=== PATIENT | male | born 1960 | race Caucasian/White ===

== ENCOUNTER 2019-12-11 14:01 | Inpatient (IN) | payer OTHER, SELFPAY ==
--- NOTE | ~2019-12-11 | CT_ITS ---
EXAMINATION: CT abdomen pelvis wo con EXAM DATE: 12/11/2019 16:45 INDICATION: Diarrhea. TECHNIQUE: Spiral CT of the abdomen and pelvis was performed without contrast. Axial, coronal and s agittal images were reviewed. The dose-length product (DLP) for this examination was 484.11 mGy-cm. The exposure was tailored according to patient size (auto mA exposure control), and iterative recons truction (ASIR) was used as additional dose reduction technique. There is no prior study for compari son. FINDINGS: The liver, spleen, adrenal glands and pancreas are unremarkable. Gallbladder is moderately distended but otherwise unremarkable. No calcified cholelithiasis. There is no nephrolithiasis or h ydronephrosis. The prostate is unremarkable. Some diffuse bladder wall thickening, could indicate chronic cystitis. Acute cystitis not excludable. There is no retroperitoneal or pelvic lymphadenopat hy. There is mild scattered arteriosclerotic disease. The appendix is normal. The stomach and small bowel are unremarkable. Moderate amount of colonic fl uid, mild to moderate diffuse colonic wall edema suspected with prominent supplying vasculature, hype remia. Appearance is consistent with colitis most likely infectious. There is mild to moderate sigmoi d colonic diverticulosis. There is no adjacent inflammatory change to suggest diverticulitis. No fr ee intraperitoneal gas. The heart is normal in size. There are no pericardial or pleural effusions . The lung bases are unremarkable. There are no osteoblastic or osteolytic lesions identified. [employer] hailey bilateral L5 spondylolysis with moderate to severe disc disease and grade 1 anterolisthesis at th is level. IMPRESSION: 1. Findings consistent with jaime colitis, diarrhea. 2. Mild to moderate sigmoid diverticulosis. 3. Mild diffuse bladder wall thickening, may be changes of chronic cystitis but check urinalysis. Reviewed, dictated and finalized at location A. IMPRESSION: 1. Findings consistent with jaime colitis, diarrhea. 2. Mild to moderate sigmoid diverticulosis. 3. Mild diffuse bladder wall thickening, may be changes of chronic cystitis bu t check urinalysis.
[2019-12-11 14:11] VITALS: BP 105/75; PULSE 91; RESP 15; TEMP 36; O2SAT 99
--- NOTE | 2019-12-11 14:26 | PC.NURSE ---
aware need UA specimen
[2019-12-11 14:27] VITALS: BP 101/68; BP 105/71; BP 99/72; PULSE 106; PULSE 91; PULSE 99
--- NOTE | 2019-12-11 14:30 | PC.NURSE ---
Pt unable to urinate at this time
--- NOTE | 2019-12-11 15:00 | ED.GENADULT ---
HPI - General Adult General Chief complaint: Abdominal Pain Stated complaint: ABD PAIN Time Seen by Provider: 12/11/19 14:06 History of Present Illness HPI narrative: Patient is a 59 y/o male complaining diarrhea for 3 weeks. He states that his diarrhea is watery and slimy. He had 20-30 episodes of diarrhea in last 24 hours. There is no alleviating or exacerbating factor. He denies any fever, abdominal pain or vomiting. He states that he was told by PCP that he may have diverticulitis or dehydration and to come to ED for evaluation. Of note, he received antibiotics (Levaquin and Flagyl) several weeks ago from PCP for presumed colitis/diveriticulitis. Related Data Home Medications Medication Instructions Recorded Confirmed amlodipine 5 mg PO 12/11/19 losartan 50 mg PO 12/11/19 omeprazole 20 mg PO 12/11/19 rosuvastatin 20 mg PO 12/11/19 Allergies Allergy/AdvReac Type Severity Reaction Status Date / Time aspirin Allergy Hives Verified 12/11/19 14:16 levofloxacin [From Levaquin] Allergy Hives Verified 12/11/19 14:16 metronidazole [From Flagyl] Allergy Hives Verified 12/11/19 14:15 Review of Systems Constitutional: Constitutional: Denies chills, Denies fever(s), Denies headache(s) and Denies weakness Eyes: Eyes: Denies blurry vision ENT: Denies headache(s) and Denies neck pain Cardiovascular: Cardiovascular: Denies chest pain and Denies dyspnea Respiratory: Respiratory: Denies cough and Denies dyspnea Gastrointestinal: Gastrointestinal: Denies abdominal pain, Reports diarrhea, Denies nausea and Denies vomiting Genitourinary: Genitourinary: Denies hematuria and Denies dysuria Musculoskeletal: Musculoskeletal: Denies back pain and Denies neck pain Neurologic: Denies headache(s) and Denies weakness [facility] Social History Social History Gender identity (if verbalized by the patient): Male Exam Const: General: no acute distress and well developed Orientation/consciousness: oriented to person, oriented to place, oriented to time and patient oriented x3 HENMT: Head: normocephalic Ears: external ears normal General nose exam: Normal external nose present Eyes: General: appearance normal, both eyes and all related structures Conjunctivae: conjunctivae normal Neck: Neck: normal visual inspection and full ROM Chest: Chest palpation & inspection: normal inspection of the chest and no tenderness Resp: Effort & Inspection: normal respiratory effort Auscultation: clear to auscultation bilaterally Cardio: Rate: regular rate Rhythm: regular rhythm GI: GI Palp: No abdominal tenderness and Yes Soft to palpation Skin: General skin exam: normal color and turgor normal Neuro: General: oriented to person, oriented to place, oriented to time and patient oriented x3 Cognition (Neuro): normal cognition Extrem: General: normal to inspection, full ROM and no pedal edema Psych: Appearance: grossly normal Mental Status: mental status grossly normal Affect: normal affect Course Consultations Consultation #1: Discussed with YAIMA Manriquez, who agrees to admit to Dr. Pollard Date: 12/11/19 Time: 17:49 Vital Signs Vital signs: Vital Signs Temperature 36.0 C L 12/11/19 14:11 Pulse Rate 91 12/11/19 14:11 Respiratory Rate 15 12/11/19 14:11 Blood Pressure 105/75 12/11/19 14:11 Pulse Oximetry 99 12/11/19 14:11 Temperature 36.0 C L 12/11/19 14:11 Pulse Rate 77 12/11/19 19:03 Respiratory Rate 18 12/11/19 19:03 Blood Pressure 106/63 12/11/19 19:03 Pulse Oximetry 99 12/11/19 19:03 Medical Decision Making Vital Signs Vital Signs: Vital Signs Temperature 36.0 C L 12/11/19 14:11 Pulse Rate 91 12/11/19 14:11 Respiratory Rate 15 12/11/19 14:11 Blood Pressure 105/75 12/11/19 14:11 Pulse Oximetry 99 12/11/19 14:11 Temperature 36.0 C L 12/11/19 14:11 Pulse Rate 77 12/11/19 19:03 Respiratory Rate 18 12/10
--- NOTE | 2019-12-11 15:02 | PC.NURSE ---
Pt attempting to urinate at this time. unsuccessfull
[2019-12-11] MEDS: SODIUM CHLORIDE 0.9% IV 1,000 ML 999 ML IV CONT (15:06)
[2019-12-11 15:18] LABS: Basophils Absolute Auto 0.1 K/mm3 (0.0-0.1); Basophils Percent Auto 0.3 % (0.2-1.2); Hematocrit 43.2 % (42.0-52.0); Hemoglobin 15.1 g/dL (14.0-18.0); Immature Granulocyte Absolute 0.11 K/mm3 (0.00-0.031); Immature Granulocyte Percent A 0.5 % (0-0.5); Lymphocytes Absolute Auto 1.84 K/mm3 (0.9-3.2); Mean Corpuscular Hemoglobin 33.3 pg (26-34); Mean Corpuscular Volume 95.4 fl (80-100); Mean Platelet Volume 10.5 fl (7.4-10.4); Monocytes Absolute Auto 1.9 K/mm3 (0.1-0.6); Monocytes Percent Auto 8.4 % (2.6-8.5); Neutrophils Absolute Auto 19.1 K/mm3 (1.3-6.7); Neutrophils Percent Auto 82.8 % (45.5-73.1); Platelet Count Result 284 k/mm3 (150-375); Red Blood Count 4.53 M/mm3 (4.6-6.20); Red Cell Distribution Width 14.4 % (11.5-14.5); White Blood Count 23.1 K/mm3 (4.5-10.0)
[2019-12-11 15:29] LABS: Alanine Aminotransferase 25 U/L (4-50); Albumin Level 4.2 g/dL (3.5-5.1); Alkaline Phosphatase 59 U/L (38-126); Aspartate Amino Transferase 20 U/L (17-59); Bilirubin,Total 0.5 mg/dL (0.2-1.3); Blood Urea Nitrogen 18 mg/dL (9-20); Carbon Dioxide 24 mmol/L (22-30); Chloride 101 mmol/L (98-107); Estimated Glomerular Filt Rate 36; Glucose 106 mg/dL (75-110); Lipase 80 U/L (23-300); Potassium 3.1 mmol/L (3.4-5.0); Sodium 136 mmol/L (137-145)
--- NOTE | 2019-12-11 15:46 | PC.NURSE ---
Leni from CT notified me that pts IV infiltrated
[2019-12-11 15:59] LABS: Add Urine Microscopic? YES; Appearance Urine Cloudy (Clear); Bacteria Urine Trace /hpf; Bilirubin Urine Negative (Negative); Blood Urine 2+ (Negative); Color Urine Amber (Yellow); Glucose Urine UA Negative (Negative); Ketones Urine Negative (Negative); Leukocyte Esterase Ur Negative LEU/UL (Negative); Mucus Urine Rare /lpf; Nitrate Urine Negative (Negative); Protein Urine 2+ mg/dL (Negative); Specific Grav Ur 1.028 (1.001-1.035); Squamous Epithelial Cell Urine Rare /hpf (Few); Urobilinogen Urine Negative mg/dL (<2.0)
[2019-12-11 16:37] VITALS: BP 99/58; PULSE 77; RESP 18; O2SAT 100
[2019-12-11] MEDS: POTASSIUM CHLORIDE 20 MEQ TABLET 40 MEQ PO (16:37)
[2019-12-11 19:03] VITALS: BP 106/63; PULSE 77; RESP 18; O2SAT 99
[2019-12-11 19:30] VITALS: BP 104/64; PULSE 80; RESP 16; TEMP 36.4; O2SAT 99; BMI 26.5
[2019-12-11] MEDS: SODIUM CHLORIDE 0.9% IV 1,000 ML 125 ML IV CONT (19:42)
[2019-12-11 19:48] VITALS: BMI 26.5
--- NOTE | 2019-12-11 19:51 | ADMGEN ---
This patient, Glenn Blake, was admitted to [facility] Surg Room 315-01. Patient/family oriented to hospital policies and general routines including ID bracelet, bed and alarms, visiting hours, pain management, procedures, bathroom and other care routines, personal items, smoking policy, room service/diet, and visiting hours. Valuables list has been completed. Information on how to activate the Rapid Response Team has been discussed. Patient/Family are encouraged to report perceived risks to care and to ask questions if they do not understand what they are told or what they should do.
[2019-12-11 22:00] VITALS: BP 100/58; PULSE 58; RESP 16; TEMP 36.7; O2SAT 98
[2019-12-12] MEDS: SODIUM CHLORIDE 0.9% IV 1,000 ML 125 ML IV CONT ×3 (04:13→21:30)
[2019-12-12 06:00] VITALS: BP 115/66; PULSE 68; RESP 16; TEMP 36.6; O2SAT 95
[2019-12-12 06:26] LABS: Basophils Percent Auto 0.2 % (0.2-1.2); Eosinophils Absolute Auto 0.2 K/mm3 (0-0.3); Eosinophils Percent Auto 1.3 % (0-4.4); Hematocrit 35.1 % (42.0-52.0); Hemoglobin 12.2 g/dL (14.0-18.0); Immature Granulocyte Absolute 0.06 K/mm3 (0.00-0.031); Immature Granulocyte Percent A 0.5 % (0-0.5); Lymphocytes Percent Auto 20.5 % (18.3-44.2); Mean Corpuscular HGB Conc 34.8 g/dl (32-36); Mean Corpuscular Hemoglobin 33.2 pg (26-34); Mean Corpuscular Volume 95.4 fl (80-100); Mean Platelet Volume 10.4 fl (7.4-10.4); Monocytes Absolute Auto 1.3 K/mm3 (0.1-0.6); Monocytes Percent Auto 10.2 % (2.6-8.5); Neutrophils Absolute Auto 8.5 K/mm3 (1.3-6.7); Neutrophils Percent Auto 67.3 % (45.5-73.1); Platelet Count Result 243 k/mm3 (150-375); Red Blood Count 3.68 M/mm3 (4.6-6.20); Red Cell Distribution Width 14.5 % (11.5-14.5); White Blood Count 12.7 K/mm3 (4.5-10.0)
[2019-12-12 06:37] LABS: Blood Urea Nitrogen 14 mg/dL (9-20); Calcium 8.1 mg/dL (8.4-10.2); Carbon Dioxide 23 mmol/L (22-30); Chloride 107 mmol/L (98-107); Estimated CRCL calculation 71 ml/min; Estimated Glomerular Filt Rate > 60; Glucose 85 mg/dL (75-110); Potassium 3.2 mmol/L (3.4-5.0); Sodium 134 mmol/L (137-145)
[2019-12-12 08:00] VITALS: PULSE 68; RESP 16; O2SAT 95
[2019-12-12] MEDS: POTASSIUM CHLORIDE 20 MEQ TABLET 40 MEQ PO (09:42)
[2019-12-12 14:00] VITALS: BP 117/68; PULSE 59; RESP 18; TEMP 36.6; O2SAT 99
--- NOTE | 2019-12-12 14:39 | PM.IMHP ---
H&P: HPI History of Present Illness Chief complaint: dehydration/diarrhea Narrative: Glenn Blake is a 59 year old male presented emergency department with a complaint of diarrhea on and off last 3 weeks however on 12/10 his symptoms got worsen, he had bouts 20 to 30 episodes watery slimy BMs, patient was recently treated for presumed diverticulitis with Flagyl and Levaquin by his PCP, patient had a CT scan of abdomen which showed patient has a jaime colitis patient started on p.o. vancomycin from emergency depart for possible C diff which is pending, we have started the patient on Zosyn to cover for colitis, patient states is feeling little better compared to when he arrived, bowel movements have improved denies any nausea or vomiting patient is on clear liquid diet, he denies any fever or chills he denies any rectal bleeding. Review of Systems Review of Systems: All systems reviewed & are unremarkable except as noted in HPI and below PMFSH Social History Social History Smoking packs per day: 1 Smoking cigarettes per day: 20.0 Years smoked: 40 Smoking pack-years: 40.00 Smoking status: Current every day smoker Tobacco type: cigarettes Alcohol intake: current Drinks per week: 8 Substance use: never Gender identity (if verbalized by the patient): Male Spiritual care concerns: No Meds Home Medications and Allergies Home Medications Medication Instructions Recorded Confirmed Type amlodipine 5 mg PO DAILY 12/11/19 12/11/19 History losartan 50 mg PO DAILY 12/11/19 12/11/19 History omeprazole 20 mg PO HS 12/11/19 12/11/19 History rosuvastatin 20 mg PO DAILY 12/11/19 12/11/19 History Allergies Allergy/AdvReac Type Severity Reaction Status Date / Time aspirin Allergy Hives Verified 12/11/19 14:16 levofloxacin [From Levaquin] Allergy Hives Verified 12/11/19 14:16 metronidazole [From Flagyl] Allergy Hives Verified 12/11/19 14:15 Vital Signs Vital Signs - 24 hr 12/11/19 16:37 12/11/19 19:03 12/11/19 19:30 Temperature 97.6 F Pulse Rate 77 77 80 Respiratory Rate 18 18 16 Blood Pressure 99/58 L 106/63 104/64 Pulse Oximetry 100 99 99 12/11/19 22:00 12/12/19 06:00 12/12/19 08:00 Temperature 98.1 F 97.9 F Pulse Rate 58 L 68 68 Respiratory Rate 16 16 16 Blood Pressure 100/58 L 115/66 Pulse Oximetry 98 95 95 Exam Const: General: comfortable and no acute distress HENMT: General nose exam: Normal nares present Mouth: Yes moist mucous membranes Eyes: General: appearance normal, both eyes and all related structures Sclera: sclerae normal Neck: Neck: supple Resp: Effort & Inspection: normal respiratory effort Auscultation: clear to auscultation bilaterally Cardio: Rate: regular rate Rhythm: regular rhythm GI: GI Palp: Yes Soft to palpation Auscultation: normal bowel sounds Skin: General skin exam: normal color Neuro: Speech: normal speech Sensory Exam: normal sensation Extrem: General: normal to inspection Psych: Affect: Anxious affect present H&P: Results Labs Labs: Short CBC 12/11/19 12/12/19 Range/Units 15:12 06:16 WBC 23.1 H 12.7 H (4.5-10.0) K/mm3 Hgb 15.1 12.2 L (14.0-18.0) g/dL Hct 43.2 35.1 L (42.0-52.0) % Plt Count 284 243 (150-375) k/mm3 [facility] 12/11/19 12/12/19 15:12 06:16 Sodium 136 L 134 L Potassium 3.1 L 3.2 L Chloride 101 107 Carbon Dioxide 24 23 BUN 18 14 Creatinine 1.90 H 1.00 Glucose 106 85 Calcium 9.0 8.1 L Liver Function 12/11/19 Range/Units 15:12 Total Bilirubin 0.5 (0.2-1.3) mg/dL AST 20 (17-59) U/L ALT 25 (4-50) U/L Alkaline Phosphatase 59 (38-126) U/L Albumin 4.2 (3.5-5.1) g/dL Urine 12/11/19 Range/Units 15:41 Urine Color [place] (Yellow) Urine Appearance Cloudy H (Clear) Urine pH 5.0 (5.0-9.0) Ur Specific [place] 1.028 (1.001-1.035) Urine Protein 2+ H (Negative) mg/dL Urine G
[2019-12-12 15:57] VITALS: BMI 26.5
--- NOTE | 2019-12-12 16:11 | PCDIET ---
Nutrition Follow-Up Complete: Altered GI fx R/T possible SIBO and large antibiotic usage as evidence by 20-30 episodes of diarrhea in 24 hrs per Normalized BMs Goal:New goal started Pt current nutrition is heart healthy. Nutrition recommendation: regular/low fiber Last recorded weight is 83.9 kg. Bowel Motility: copius diarrhea Additional Notes: After speaking with pt, he underwent cellulitis treatment with 20 days on antibiotics prior to being treated for antibiotics due to colitis. Pt may be experiencing SIBO due to antibiotic treatment. Discussed with . We will follow for needed low fodmap edu. I spoke with the pt today regarding fiber intake, fermented foods, and probiotics after d/c due to numerous antibiotic treatment. Following every three days. BMs, wt, labs, po intake
[2019-12-12 22:00] VITALS: BP 119/64; PULSE 55; RESP 18; TEMP 36.8; O2SAT 99
[2019-12-13] MEDS: SODIUM CHLORIDE 0.9% IV 1,000 ML 125 ML IV CONT (05:49)
[2019-12-13 06:00] VITALS: BP 121/56; PULSE 51; RESP 18; TEMP 36.8; O2SAT 94
[2019-12-13 06:41] LABS: Hemoglobin 11.6 g/dL (14.0-18.0); Mean Corpuscular HGB Conc 34.1 g/dl (32-36); Mean Corpuscular Hemoglobin 32.8 pg (26-34); Platelet Count Result 248 k/mm3 (150-375); Red Blood Count 3.54 M/mm3 (4.6-6.20); Red Cell Distribution Width 14.3 % (11.5-14.5); White Blood Count 6.9 K/mm3 (4.5-10.0)
[2019-12-13 06:50] LABS: Blood Urea Nitrogen 10 mg/dL (9-20); Calcium 8.1 mg/dL (8.4-10.2); Carbon Dioxide 23 mmol/L (22-30); Chloride 111 mmol/L (98-107); Estimated CRCL calculation 78 ml/min; Estimated Glomerular Filt Rate > 60; Glucose 92 mg/dL (75-110); Potassium 3.5 mmol/L (3.4-5.0); Sodium 138 mmol/L (137-145)
[2019-12-13] MEDS: POTASSIUM CHLORIDE 20 MEQ TABLET 40 MEQ PO (09:15)
--- NOTE | 2019-12-13 12:52 | WPDGICN ---
Assessment and Plan Assessment and plan (1) Colitis: Code(s): K52.9 - Noninfective gastroenteritis and colitis, unspecified Status: Acute Assessment and Plan: he is much better now, treated in the hospital and now he is almost back to baseline c diff and stool culture negative ok to go home, I will perform colonoscopy as outpatient to assess for healing (2) Diarrhea: Qualifiers: Diarrhea type: unspecified type Qualified Code(s): R19.7 - Diarrhea, unspecified Code(s): R19.7 - Diarrhea, unspecified Status: Acute Assessment and Plan: resolved now (3) Leukocytosis: Qualifiers: Leukocytosis type: unspecified Qualified Code(s): D72.829 - Elevated white blood cell count, unspecified Code(s): D72.829 - Elevated white blood cell count, unspecified Status: Acute Assessment and Plan: from colitis, wbc normal today (4) BRIE (acute kidney injury): Code(s): N17.9 - Acute kidney failure, unspecified Status: Acute Assessment and Plan: resolved after hydration and diarrhea stopped GI Consult Note Consult date/time: 12/13/19 12:52 Reason for consult: diarrhea, colitis HPI: Glenn Blake is a 59 year old male with history of HTN, HLD who had cellulitis in leg on October and treated with antibiotics for 20 days. He came to the hospital because diarrhea for about 3 weeks for which his PCP ordered empiric abx with levaquin and flagyl but discontinued after 6 days because developed rash however on 12/10 his symptoms got worsen with frequent episodes of watery slimy BMs, also had leukocytosis, treated with oral vancomycin and iv zosyn. Today wbc down to normal. CT scan of abdomen showed pancolitis. He is doing great today, no more diarrhea and tolerating diet, he is feeling like going home. He had a colonoscopy 1.5-2 years ago elsewhere for screening purpose. He denies chronic history of diarrhea. Review of Systems Constitutional: Constitutional: Reports chills and Denies headache(s) Eyes: Eyes: Denies blurry vision ENT: Reports Normal hearing present, Denies headache(s) and Denies neck pain Cardiovascular: Cardiovascular: Denies chest pain and Denies dyspnea Respiratory: Respiratory: Denies dyspnea Gastrointestinal: Gastrointestinal: Reports diarrhea Genitourinary: Genitourinary: Denies dysuria Musculoskeletal: Musculoskeletal: Denies neck pain Integumentary/Breasts: Skin/Breast: Denies dry skin Neurologic: Reports Normal hearing present, Denies headache(s) and Denies weakness Psychiatric: Psychiatric: Denies anxiety Endocrine: Endocrine: Denies change in body appearance Hematologic/Lymphatic: Hematologic/Lymphatic: Denies easy bleeding Allergic/Immunologic: Allergic/Immunologic: Denies urticaria PMFSH Social History Social History Smoking packs per day: 1 Smoking cigarettes per day: 20.0 Years smoked: 40 Smoking pack-years: 40.00 Smoking status: Current every day smoker Tobacco type: cigarettes Alcohol intake: current Drinks per week: 8 Substance use: never Gender identity (if verbalized by the patient): Male Spiritual care concerns: No Meds Home Medications and Allergies Home Medications Medication Instructions Recorded Confirmed Type amlodipine 5 mg PO DAILY 12/11/19 12/11/19 History losartan 50 mg PO DAILY 12/11/19 12/11/19 History omeprazole 20 mg PO HS 12/11/19 12/11/19 History rosuvastatin 20 mg PO DAILY 12/11/19 12/11/19 History Allergies Allergy/AdvReac Type Severity Reaction Status Date / Time aspirin Allergy Hives Verified 12/11/19 14:16 levofloxacin [From Levaquin] Allergy Hives Verified 12/11/19 14:16 metronidazole [From Flagyl] Allergy Hives Verified 12/11/19 14:15 Vital Signs Vital Signs - 24 hr 12/12/19 14:00 12/12/19 22:00 12/13/19 06:00 Temperature 97.8 F 98.2 F 98.3 F Pulse Rate 59 L 55 L 51 L Respir
--- NOTE | 2020-01-12 12:31 | PM.DS ---
DS: Admitting Diagnosis Admitting Diagnosis Admitting Diagnosis: Noninfective gastroenteritis and colitis, unspecified DS: Discharge Diagnosis Discharge Diagnosis (1) Colitis: Code(s): K52.9 - Noninfective gastroenteritis and colitis, unspecified Status: Acute Assessment and Plan: Glenn Blake is a 59 year old male presented emergency department with a complaint of diarrhea on and off last 3 weeks however on 12/10 his symptoms got worsen, he had bouts 20 to 30 episodes watery slimy BMs, patient was recently treated for presumed diverticulitis with Flagyl and Levaquin by his PCP, patient had a CT scan of abdomen which showed patient has a jaime colitis patient started on p.o. vancomycin from emergency depart for possible C diff which is pending, we have started the patient on Zosyn to cover for colitis, patient states is feeling little better compared to when he arrived bowel movements have improved denies any nausea or vomiting patient is on clear liquid diet, he denies any fever or chills he denies any rectal bleeding. Will continue to monitor patient will need GI consultation if patient's symptoms do not improve with antibiotics (2) Diarrhea: Qualifiers: Diarrhea type: unspecified type Qualified Code(s): R19.7 - Diarrhea, unspecified Code(s): R19.7 - Diarrhea, unspecified Status: Acute Assessment and Plan: Etiology uncertain will continue antibiotics will follow-up on a stool culture and further recommendation to follow (3) BRIE (acute kidney injury): Code(s): N17.9 - Acute kidney failure, unspecified Status: Acute Assessment and Plan: Most likely secondary to dehydration due to several episodes of loose bowel movement and poor p.o. intake will continue to hydrate the patient and monitor kidney function DS: Summary Hospital Course Reason for hospitalization: Glenn Blake is a 59 year old male presented emergency department with a complaint of diarrhea on and off last 3 weeks however on 12/10 his symptoms got worsen, he had bouts 20 to 30 episodes watery slimy BMs, patient was recently treated for presumed diverticulitis with Flagyl and Levaquin by his PCP, patient had a CT scan of abdomen which showed patient has a jaime colitis patient started on p.o. vancomycin from emergency depart for possible C diff which is pending, we have started the patient on Zosyn to cover for colitis, patient states is feeling little better compared to when he arrived bowel movements have improved denies any nausea or vomiting patient is on clear liquid diet, he denies any fever or chills he denies any rectal bleeding. Will continue to monitor patient will need GI consultation if patient's symptoms do not improve with antibiotics Hospital Course: Glenn Blake is a 59 year old male presented emergency department with a complaint of diarrhea on and off last 3 weeks however on 12/10 his symptoms got worsen, he had bouts 20 to 30 episodes watery slimy BMs, patient was recently treated for presumed diverticulitis with Flagyl and Levaquin by his PCP, patient had a CT scan of abdomen which showed patient has a jaime colitis patient started on p.o. vancomycin from emergency depart for possible C diff which is pending, we have started the patient on Zosyn to cover for colitis, patient states is feeling little better compared to when he arrived bowel movements have improved denies any nausea or vomiting patient is on clear liquid diet, he denies any fever or chills he denies any rectal bleeding. Will continue to monitor patient will need GI consultation if patient's symptoms do not improve with antibiotics Patient was seen by GI and evaluated and he is feeling much better and back to baseline, will discharge him today to follow up with the GI as as outpatient. Status at Discharge Functional status at discharge: independent ambulation Overall status at discharge: patient is back to baseline Time Spent with Jael
== END 2019-12-13 14:24 | disposition home or self-care (01) | DRG 386 ==
LOC: ANHED 17:56 → ANH3MEDSUR 19:39
PROVIDERS: Emergency Medicine; Admitting Provider Internal Medicine; Emergency Provider Emergency Medicine; PCP Internal Medicine; Visit Provider Family Medicine
DX: K51.00 Ulcerative (chronic) pancolitis without complications (principal); N17.9 Acute kidney failure, unspecified; E86.0 Dehydration; R21 Rash and other nonspecific skin eruption; D72.829 Elevated white blood cell count, unspecified; E78.5 Hyperlipidemia, unspecified; F17.210 Nicotine dependence, cigarettes, uncomplicated
CPT/HCPCS: 36415; 74176; 80048; 80053; 81001; 83690; 83735; 85025; 85027; 87045; 87046; 87324; 87427; 96360; 96361; 99285; A9270; J2543; J7030

== ENCOUNTER → 2020-01-25 12:48 | Outpatient (CLI) | payer OTHER, SELFPAY ==
--- NOTE | ~2020-01-25 | CT_ITS ---
EXAMINATION: CT lung screening EXAM DATE: 01/25/2020 13:43 INDICATION: Personal history of nicotine dependence. TECHNIQUE: Spiral low dose CT of the chest without contrast. Axial, coronal and sagittal images were reviewed. The dose-length product (DLP) for this examination was 142.16 mGy-cm. The exposure was t ailored according to patient size (auto mA exposure control), and iterative reconstruction (ASIR) was used as additional dose reduction technique. There is no prior study for comparison. FINDINGS: Biapical opacities consistent with scarring. Right upper lobe calcified granuloma. There i s mild emphysema. The ascending aorta measures 4.7 cm, mildly aneurysmal. There are dense aortic valv e calcifications, could indicate bicuspid valve. Tracheobronchial tree is patent. There is no medi astinal, hilar or axillary lymphadenopathy. There are no pleural or pericardial effusions. There is no pneumothorax. Heart normal in size. There is mild coronary arterial calcification, arterial sclerosis. There is mild bronchiectasis. Upper abdomen is unremarkable. There is thoracic spondy losis without osteoblastic or osteolytic lesions identified. IMPRESSION: 1. Lung-RADS category 2S, benign appearance or behavior (<1% chance of malignancy); recommend continu ed LDCT screening in 1 year. 2. Dense aortic valve calcifications with mildly aneurysmal ascending aorta. Reviewed, dictated and finalized at location A. IMPRESSION: 1. Lung-RADS category 2S, benign appearance or behavior (<1% chance of malignan cy); recommend continued LDCT screening in 1 year. 2. Dense aortic valve calcifications with mildly aneurysmal ascending aorta.
== END ==
PROVIDERS: Visit Provider Internal Medicine
DX: Z12.2 Encounter for screening for malignant neoplasm of respiratory organs (principal); Z87.891 Personal history of nicotine dependence; I70.0 Atherosclerosis of aorta; I35.1 Nonrheumatic aortic (valve) insufficiency
CPT/HCPCS: G0297

== ENCOUNTER 2020-01-31 00:57 | Outpatient (CLI) | payer OTHER, SELFPAY ==
[2020-01-31 19:19] LABS: SARS-CoV-2 RNA PCR Negative
== END 2020-01-31 00:58 | disposition home or self-care (01) ==
LOC: ANHCOVIDDT 00:57
PROVIDERS: PCP Internal Medicine; Visit Provider Internal Medicine Gastroenterology
DX: Z01.818 Encounter for other preprocedural examination (principal); Z11.59 Encounter for screening for other viral diseases
CPT/HCPCS: 87635; C9803; U0003

== ENCOUNTER 2020-02-02 02:18 | Day surgery (SDC) | payer OTHER, SELFPAY ==
[2020-01-23 13:01] VITALS: BMI 27.1
--- NOTE | 2020-02-02 06:43 | WPDANESEPPF ---
Anes - Initial Pre Proc Eval Procedure: Operation Date: 02/02/20 07:30 Proposed Procedures p Colonoscopy - Corbin Carrasco MD Date/Time: 02/02/20 06:43 Surgeon: Corbin Carrasco MD Pre Op Diagnosis: Non Infected Colitis and Gastritis Patient Data Age: 60 Gender: M Height: 1.78 m Weight: 86 kg Allergies Allergy/AdvReac Type Severity Reaction Status Date / Time aspirin Allergy Mild Hives Verified 01/23/20 12:59 levofloxacin [From Levaquin] Allergy Hives Verified 01/23/20 12:59 metronidazole [From Flagyl] Allergy Hives Verified 01/23/20 12:59 Home Medications Medication Instructions Recorded Confirmed Type amlodipine 5 mg PO DAILY 12/11/19 01/23/20 History losartan 50 mg PO DAILY 12/11/19 01/23/20 History omeprazole 20 mg PO HS 12/11/19 01/23/20 History rosuvastatin 20 mg PO DAILY 12/11/19 01/23/20 History peg 3350-electrolytes 236 240 ml PO Q10M #4000 ml 01/24/20 Rx gram-22.74 gram-6.74 gram-5.86 gram solution Patient hx anesthesia problems: none Family hx anesthesia problems: none PMFSH Past Medical History Medical History (Updated 02/02/20 @ 06:46 by Rick Porter MD) Aneurysm ascending aorta measures 4.7 cm Arthritis Back pain GERD (gastroesophageal reflux disease) HTN (hypertension) Hypercholesterolemia Leukocytosis PUD (peptic ulcer disease) Tobacco abuse Social History Social History Smoking packs per day: 1 Smoking cigarettes per day: 20.0 Years smoked: 40 Smoking pack-years: 40.00 Smoking status: Current every day smoker Tobacco type: cigarettes Alcohol intake: current Drinks per week: 8 Substance use: never Gender identity (if verbalized by the patient): Male Sexual Orientation (if Verbalized by the Patient): Straight or Heterosexual Spiritual care concerns: No Anes - Eval Final PreProcedure Day of Procedure 02/02/20 06:43 Patient weight: overweight Heart: regular rate and rhythm Lungs: clear to auscultation and normal air movement Airway: Mallampati scale class II Neurological: alert and oriented Last oral intake: >/= 8 hours ASA classification: III Emergent: no Anesthetic plan: proceed Anesthesia type and monitoring: general GIVS Informed Consent: The patient's anesthetic plan and its attendant risks and benefits were discussed with the patient/family/POA. Questions were solicited and answers provided to the satisfaction of the patient/family/POA.
[2020-02-02] MEDS: LACTATED RINGERS 1,000 ML 150 ML IV CONT (06:56)
[2020-02-02 07:00] VITALS: BP 140/81; PULSE 84; RESP 16; TEMP 36.7; O2SAT 100
--- NOTE | 2020-02-02 07:26 | WPDHPUPDATE1 ---
History and Physical Update Update Date/Time: 02/02/20 07:26 History and Physical has been reviewed, including an updated exam of the patient. There are NO changes in the patient's condition. Risks, benefits, and alternatives have been discussed and questions answered. Patient agrees to proceed with procedure.
[2020-02-02 07:49] VITALS: BP 87/57; PULSE 68; RESP 13; O2SAT 94
[2020-02-02 07:59] VITALS: BP 89/57; PULSE 64; RESP 13; O2SAT 94
[2020-02-02 08:10] VITALS: BP 104/66; PULSE 53; RESP 16; O2SAT 98
== END 2020-02-02 08:25 | disposition home or self-care (01) ==
PROVIDERS: PCP Internal Medicine; Visit Provider Internal Medicine Gastroenterology
PROC: 0DJD8ZZ Inspection of Lower Intestinal Tract, Via Natural or Artificial Opening Endoscopic (ICD-10-PCS; CPT 45378; principal; 2020-02-02 07:30)
DX: Z09 Encounter for follow-up examination after completed treatment for conditions other than malignant neoplasm (principal); D12.0 Benign neoplasm of cecum; K57.30 Diverticulosis of large intestine without perforation or abscess without bleeding; K64.8 Other hemorrhoids; I10 Essential (primary) hypertension; E78.00 Pure hypercholesterolemia, unspecified; K21.9 Gastro-esophageal reflux disease without esophagitis; I71.4 Abdominal aortic aneurysm, without rupture; F17.210 Nicotine dependence, cigarettes, uncomplicated
CPT/HCPCS: 45385; 87635; 88305; C9803; J2704; J7120; U0003

== ENCOUNTER 2021-11-12 14:15 | Emergency (ER) | payer OTHER, SELFPAY ==
--- NOTE | ~2021-11-12 | XR_ITS ---
EXAM: XR forearm LT 2V HISTORY: L ARM PAIN, INJURY X 1 DAY, PAIN LATERAL RADIUS PAIN COMPARISON: 01/14/2018. FINDINGS: Normal mineralization. Comminuted nondisplaced intra-articular fracture of the left distal radius. No dislocation. No lytic or blastic lesion. Joint spaces maintained. No erosion or periostea l change. Soft tissues within normal limits. IMPRESSION: Comminuted nondisplaced intra-articular fracture of the left distal radius. Reviewed, dictated and finalized at location K.
[2021-11-12 15:10] VITALS: BP 141/88; PULSE 91; RESP 18; TEMP 36.4
--- NOTE | 2021-11-12 16:28 | ED.UPPEXIN ---
HPI - Extremity Injury (Upper) General Chief Complaint: Extremity Injury, Upper Stated Complaint: L ARM INJURY Time Seen by Provider: 11/12/21 16:03 History of Present Illness HPI narrative: 61 y/o male presents to the ER today for complaints of left wrist pain and swelling. He was moving something heavy with a christoph and it slipped. His arm slipped and went through the rungs of the christoph and got pinned between the christoph and the heavy object. He says that it happened this afternoon. No numbness or tingling. He can move his fingers but hurts. He is not able to flex or extend wrist. He has not taken anything for pain prior to arrival. Declines getting anything for pain right now. Related Data Home Medications Medication Instructions Recorded Confirmed amlodipine 5 mg PO DAILY 12/11/19 02/02/20 losartan 50 mg PO DAILY 12/11/19 02/02/20 omeprazole 20 mg PO HS 12/11/19 02/02/20 rosuvastatin 20 mg PO DAILY 12/11/19 02/02/20 Allergies Allergy/AdvReac Type Severity Reaction Status Date / Time aspirin Allergy Mild Hives Verified 02/02/20 06:58 levofloxacin [From Levaquin] Allergy Hives Verified 02/02/20 06:58 metronidazole [From Flagyl] Allergy Hives Verified 02/02/20 06:58 Review of Systems Constitutional: Constitutional: Reports no additional constitutional complaints Eyes: Eyes: Reports no additional eye complaints ENT: Reports system reviewed and no additional complaints, except as documented Cardiovascular: Cardiovascular: Denies chest pain Respiratory: Respiratory: Denies dyspnea Gastrointestinal: Gastrointestinal: Denies abdominal pain Genitourinary: Genitourinary: Reports no additional male genitourinary complaints Musculoskeletal: Musculoskeletal: Reports arthralgias, Reports joint swelling and Reports limited range of motion Integumentary/Breasts: Skin/Breast: Denies unusual bruising and Denies wounds Neurologic: Denies Sensory deficit (Neuro) and Denies tingling Psychiatric: Psychiatric: Reports no additional psychiatric complaints Endocrine: Endocrine: Reports no additional endocrine complaints Hematologic/Lymphatic: Hematologic/Lymphatic: Reports no additional hematologic/lymphatic complaints Allergic/Immunologic: Allergic/Immunologic: Reports no additional allergic/immunologic complaints PMFSH Past Medical History Medical History Aneurysm ascending aorta measures 4.7 cm Arthritis Back pain GERD (gastroesophageal reflux disease) HTN (hypertension) Hypercholesterolemia Leukocytosis PUD (peptic ulcer disease) Tobacco abuse Social History Social History Smoking packs per day: 1 Smoking cigarettes per day: 20.0 Years smoked: 40 Smoking pack-years: 40.00 Smoking status: Current every day smoker Tobacco type: cigarettes Alcohol intake: current Drinks per week: 8 Substance use: never Gender identity (if verbalized by the patient): Male Sexual Orientation (if Verbalized by the Patient): Straight or Heterosexual Spiritual care concerns: No Exam Const: General: cooperative, healthy appearing and no acute distress HENMT: Head: normal to inspection Eyes: General: appearance normal, both eyes and all related structures Neck: Neck: normal visual inspection Chest: Chest palpation & inspection: normal inspection of the chest Resp: Effort & Inspection: normal respiratory effort and able to speak in complete sentences Auscultation: clear to auscultation bilaterally GI: Inspection: normal to inspection Back/Spine/Pelvis: Back: no CVA tenderness Skin: General skin exam: normal color and no rashes or lesions noted Neuro: General: oriented to person, oriented to place and oriented to time Extrem: Other: Left wrist with moderate swelling, tender over radius, limited ROM, distal sensation and cap refill normal Psych: Appearance: grossly normal Cou
--- NOTE | 2021-11-12 17:06 | PC.NURSE ---
PT denies numbness and tingling to left arm. pt able to move fingers and fingers are warm to touch.
== END 2021-11-12 17:09 | disposition home or self-care (01) ==
PROVIDERS: Emergency Provider Nurse Practitioner Family; PCP Internal Medicine
DX: S52.572A Other intraarticular fracture of lower end of left radius, initial encounter for closed fracture (principal); I10 Essential (primary) hypertension; E78.00 Pure hypercholesterolemia, unspecified; M19.90 Unspecified osteoarthritis, unspecified site; K21.9 Gastro-esophageal reflux disease without esophagitis; Z87.11 Personal history of peptic ulcer disease; F17.210 Nicotine dependence, cigarettes, uncomplicated; W23.0XXA Caught, crushed, jammed, or pinched between moving objects, initial encounter
CPT/HCPCS: 29125; 73090; 99284

== ENCOUNTER 2021-11-15 12:35 | Outpatient (CLI) | payer OTHER, SELFPAY ==
--- NOTE | ~2021-11-15 | CT_ITS ---
CT OF LEFT WRIST EXAMINATION: CT wrist LT wo con DATE: 11/15/2021 13:14 INDICATION: Left distal radius fracture. TECHNIQUE: Computed tomography (CT) of the left wrist was performed without intravenous contrast. Aut omated exposure control and iterative reconstruction technique were employed. The dose-length product was 556.15 mGy-cm. COMPARISON: X-ray forearm 11/12/2021 FINDINGS: Limitations: None Bones: Comminuted nondisplaced intra-articular fracture of the distal left radius. No other fracture detected. No dislocation. Moderate degenerative change at the trapeziometacarpal joint. Soft Tissues:Soft tissue swelling about the wrist, otherwise normal. No mass. Other: No radiopaque foreign body. IMPRESSION: Comminuted nondisplaced intra-articular distal left radius fracture. Reviewed, dictated and finalized at location K.
== END 2021-11-15 12:36 | disposition home or self-care (01) ==
PROVIDERS: PCP Internal Medicine; Visit Provider Orthopaedic Surgery
DX: S52.572D Other intraarticular fracture of lower end of left radius, subsequent encounter for closed fracture with routine healing (principal); X58.XXXD Exposure to other specified factors, subsequent encounter
CPT/HCPCS: 73200

== ENCOUNTER → 2021-12-26 12:48 | Outpatient (CLI) | payer OTHER, SELFPAY ==
--- NOTE | ~2021-12-26 | US_ITS ---
EXAMINATION: US thyroid DATE: 12/26/2021 13:17 INDICATION: Hypothyroidism TECHNIQUE: Multiple ultrasound images of the thyroid were obtained. COMPARISON: None. FINDINGS: The right thyroid lobe measures 4.6 x 1.6 x 1.4 cm. The left thyroid lobe measures 4.3 x 1.8 x 1.3 c m. 9 mm wider than tall anechoic cystic lesion in the left thyroid lobe with small peripheral echoge hailey focus likely representing inspissated colloid (TI-RADS 1, benign, no FNA recommended). No other t hyroid nodules identified. There is coarsened echotexture with increased vascular flow throughout the thyroid gland. IMPRESSION: 1. Likely benign 9 mm TI RADS 1 right thyroid nodule. 2. Coarsened thyroid echotexture with increased vascular flow on color Doppler suggestive of thyroidi tis. Reviewed, dictated and finalized at location B. IMPRESSION: 1. Likely benign 9 mm TI RADS 1 right thyroid nodule. 2. Coarsened thyroid echotexture with increased vascular flow on color Doppler suggestive of thyroiditis.
--- NOTE | ~2021-12-26 | CT_ITS ---
EXAMINATION: CT lung screening DATE: 12/26/2021 13:06 INDICATION: Personal history of nicotine dependence, hypothyroidism TECHNIQUE: Computed tomography (CT) of the chest was performed without intravenous contrast. Addition al 3D reconstructions utilizing coronal maximum intensity projection (MIP) were performed. Automated exposure control and iterative reconstruction technique were employed. The dose-length product was 16 0.78 mGy-cm. COMPARISON: 01/25/2020 FINDINGS: Mild emphysema and stable biapical pleural-parenchymal scarring. Small calcified right upper lobe nod ule and calcified right hilar lymph nodes consistent with old granulomatous disease. No other suspici ous pulmonary nodules, pneumonia, pulmonary edema or pleural effusion. Heart size is normal. Aortic v alve calcification. No pericardial effusion. Fusiform ascending thoracic aortic aneurysm measuring up to 4.7 x 4.6 cm measured orthogonal to the axis of flow on coronal and sagittal images. No pathologi inocencia enlarged thoracic lymphadenopathy. Mild bilateral gynecomastia. Visualized upper abdomen is unr emarkable. Mild thoracic spondylosis with chronic mild anterior wedging at T8. IMPRESSION: 1. Lung-RADS category 2: Benign appearance or behavior. Continue annual screening with noncontrast lo w-dose chest CT in 12 months. 2. Dense aortic valve calcification and fusiform 4.7 cm ascending thoracic aortic aneurysm. Reviewed, dictated and finalized at location B. IMPRESSION: 1. Lung-RADS category 2: Benign appearance or behavior. Continue annual screeni ng with noncontrast low-dose chest CT in 12 months. 2. Dense aortic valve calcification and fusiform 4.7 cm ascending thoracic aort ic aneurysm.
== END ==
PROVIDERS: PCP Internal Medicine; Visit Provider Internal Medicine
DX: Z12.2 Encounter for screening for malignant neoplasm of respiratory organs (principal); Z87.891 Personal history of nicotine dependence; E03.9 Hypothyroidism, unspecified
CPT/HCPCS: 71271; 76536

== ENCOUNTER → 2023-02-04 08:07 | Outpatient (CLI) | payer OTHER, MEDICARE, SELFPAY ==
--- NOTE | ~2023-02-04 | CT_ITS ---
EXAMINATION:CT lung screening DATE: 02/04/2023 08:29 INDICATION: Nicotine dependence, cigarettes, uncomplicated. TECHNIQUE: Computed tomography (CT) of the chest was performed without intravenous contrast. Automate d exposure control and iterative reconstruction technique were employed. The dose-length product (DLP ) was 146.99 mGy-cm. COMPARISON: Chest CT 12/26/2021 FINDINGS: There is mild scarring at the lung bases. There is mild emphysema. A calcified right lung n odule and calcified right hilar lymph nodes are consistent with old granulomatous disease. No pleural effusion. The heart size is normal. There are calcifications of the aortic valve. There are coronary artery calcifications. No pericardial effusion. There is stable ectasia of ascending aorta measuring 4.7 cm. There is mild bilateral gynecomastia. There is moderate thoracic spondylosis. There is mild chronic anterior wedging of multiple vertebral bodies. IMPRESSION: 1. Lung-RADS category 2: Benign appearance or behavior. Continue annual screening with noncontrast lo w-dose chest CT in 12 months. Reviewed, dictated and finalized at location L. IMPRESSION: 1. Lung-RADS category 2: Benign appearance or behavior. Continue annual screeni ng with noncontrast low-dose chest CT in 12 months.
--- NOTE | ~2023-02-04 | US_ITS ---
EXAMINATION: US aorta [facility] DATE: 02/04/2023 08:22 INDICATION: Abdominal aortic aneurysm screening with risk factors of hypertension, smoking, and, hype rcholesterolemia and aortic insufficiency TECHNIQUE: Grayscale, color Doppler, and pulsed Doppler images of the aorta and common iliac arteries were obtained. COMPARISON: None. FINDINGS: The proximal aorta measures 2.6 cm. The mid aorta measures 2.0 cm. The distal aorta measures 1.9 cm. The right common iliac artery measures 8 mm. The left common iliac artery measures 8 mm. IMPRESSION: 1. Normal caliber abdominal aorta Reviewed, dictated and finalized at location A.
== END ==
PROVIDERS: PCP Internal Medicine; Visit Provider Internal Medicine
DX: Z12.2 Encounter for screening for malignant neoplasm of respiratory organs (principal); F17.210 Nicotine dependence, cigarettes, uncomplicated
CPT/HCPCS: 71271; 76706

== ENCOUNTER 2024-02-11 08:20 | Outpatient (CLI) | payer MEDICARE, SELFPAY ==
--- NOTE | ~2024-02-11 | CT_ITS ---
CT Scan of the Chest without Contrast: Clinical Indication: Lung cancer screening, nicotine dependence Technique: Contiguous sections were acquired throughout the chest without intravenous contrast. Dose reduction technique was used on this scan by utilizing automated exposure control and iterative recon struction technique. The dose-length product (DLP) was 146.77 mGy-cm. COMPARISON: 02/04/2023 Findings: There is no evidence of any significant mediastinal, hilar or axillary lymphadenopathy. The mediastin al soft tissues appear normal. There is no evidence of pleural or pericardial effusion. Stable mild biapical scarring. Calcified right upper lobe granuloma noted. Images through the upper abdomen reveal no abnormalities. Impression: Lung RADS 2: Benign appearance. 12 month follow-up screening CT advised. Reviewed, dictated and finalized at location . Impression: Lung RADS 2: Benign appearance. 12 month follow-up screening CT advised.
== END 2024-02-11 08:21 ==
LOC: MICIMG 08:21
PROVIDERS: PCP Internal Medicine Cardiovascular Disease; Visit Provider Internal Medicine
DX: F17.210 Nicotine dependence, cigarettes, uncomplicated (principal)
CPT/HCPCS: 71271

== ENCOUNTER 2025-05-03 13:48 | Outpatient (CLI) | payer MEDICARE, SELFPAY ==
--- NOTE | ~2025-05-03 | CT_ITS ---
CT lung screening INDICATION: Nicotine dependence, screening COMPARISON: 02/11/2024. TECHNIQUE: CT examination of the entire thorax without contrast was performed using low dose technique. Thin section axial, sagittal and coronal images were included to increase sensitivity for small lung nodules. FINDINGS: PULMONARY NODULES: No suspicious noncalcified pulmonary nodule. OTHER PULMONARY FINDINGS: Apical scarring is stable. There is calcified granuloma within the right upper lobe. No emphysematous changes are present. No pathologically enlarged lymph nodes are present. Normal heart size. In this limited nondedicated CT there are no significant coronary artery calcifications. UPPER ABDOMEN AND PERIPHERAL SOFT TISSUE: Ill defined 1.8 cm right renal cyst is noted. OSSEOUS STRUCTURES: Bone window shows no aggressive blastic or lytic lesions. IMPRESSION: 1. Lung-RADS category 1: No nodules or definitely benign nodules. Recommendations: 1 or 2: Annual screening with low-dose CT in 12 months. 2. No emphysematous changes are present. All CT scans at this facility are performed using low dose modulation techniques as appropriate to perform exam including the following: automated exposure control; use of iterative reconstruction technique; adjustment of the mA and/or kV according to patient size (this includes techniques or standardized protocols for targeted exams where dose is matched to indication/reason for exam). Reviewed, dictated and finalized at location S. IMPRESSION: 1. Lung-RADS category 1: No nodules or definitely benign nodules. Recommendations: 1 or 2: Annual screening with low-dose CT in 12 months. 2. No emphysematous changes are present. All CT scans at this facility are performed using low dose modulation techniqu es as appropriate to perform exam including the following: automated exposure c ontrol; use of iterative reconstruction technique; adjustment of the mA and/or kV according to patient size (this includes techniques or standardized protocol s for targeted exams where dose is matched to indication/reason for exam).
--- OUTSIDE RECORDS SUMMARY | 2025-05-03 14:23 | XMS_ITS | Data Portability ---
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 available 09/30/2022 When Did You Quit Smoking? 1-5yearssincelastci delaney Information not available 12/11/2024 Are There Any Guns Present In Your Home? Yes Information not available 09/30/2022 Do You Use Insect Repellent Routinely? Yes [email or web address] Information not available 03/29/2024 Where Do You Live? SingleLevelHouse Information not available 09/30/2022 Presence Of Domestic Violence No [email or web address] Information not available 03/29/2024 Guns Present In The Home? Yes [email or web address] Information not available 03/29/2024 Are You Able To Care For Yourself? Yes [email or web address] Information not available 03/29/2024 Are You Blind Or Do Yo Have Difficulty Seeing? No [email or web address] Information not available 03/29/2024 Are You Deaf Or Do You Have Serious Difficulty Hearing? No [email or web address] Information not available 03/29/2024 General Stress Level? Low [email or web address] Information not available 03/29/2024 Live Alone Of With Others? With Others [email or web address] Information not available 03/29/2024 Do You Have A Medical Power Of Document Photographer? No MIGRATION.030 [id number] Information not available 09/02/2022 What Was The Date Of Your Most Recent Tobacco Screening? 01/10/2025 [email or web address] Information not available 01/10/2025 How Many Children Do You Have? 1 [email or web address] Information not available 03/29/2024 What Is Your Current Pack Years? 30ormorepackyears [email or web address] Information not available 01/10/2025 Have You Ever Been Counseled For Unhealthy Alcohol Use? No [email or web address] Information not available 03/29/2024 Do You Have Any Pets? Yes Dog, Lizard, Fish [email or web address] Information not available 03/29/2024 Do You Use Protection During Sex? No [email or web address] Information not available 03/29/2024 What Is Your Relationship Status? Information not available 09/30/2022 Do You Use Your Seat Belt Or Car Seat Routinely? Yes [email or web address] Information not available 03/29/2024 Are You Sexually Active? Yes [email or web address] Information not available 03/29/2024 Do You Have Smoke And Carbon Monoxide Detectors In Your Home? Yes Information not available 09/30/2022 At What Age Did You Start Smoking Tobacco? 16 MIGRATION.0301 [id number] Information not available 09/02/2022 Are You Passively Exposed To Smoke? Yes Information not available 09/30/2022 Are There Any Smokers In Your House? Yes Information not available 09/30/2022 How Much Tobacco Do You Smoke? No Was 1ppd Information not available 12/11/2024 What Types Of Sporting Activities Do You Participate In? Golf [email or web address] Information not available 03/29/2024 Do You Use Sunscreen Routinely? No MIGRATION.0301 [id number] Information not available 09/02/2022 Has Tobacco Cessation Counseling Been Provided? Yes [email or web address] Information not available 03/29/2024 On What Date Was Tobacco Cessation Counseling Provided? 03/29/2024 [email or web address] Information not available 03/29/2024 How Many Years Have You Smoked Tobacco? 45 MIGRATION.0301 [id number] Information not available 09/02/2022 Have You Recently Traveled Abroad? No MIGRATION.0301 [id number] Information not available 09/02/2022 Do You Have Difficulty Walking Or Climbing Stairs? No [email or web address] Information not available 03/29/2024 Do You Have Any Dietary Restrictions? No Information not available 03/29/2024 Sex: Male Functional Status Question Answer Note LastModified by Organizat ion Details LastModified Time Do you use any illicit or recreational drugs? No Information not available 09/30/2022 Do you or have you ever used any other forms of tobacco or nicotine? No Information not available 09/30/2022 What is your level of alcohol consumption? Occasional [id number] Information not available 09/02/2022 Are you currently employed? Yes Information not available 09/30/2022 Do you have transportation difficulties? No [email or web address] Information not available 03/29/2024 Are you able to walk independently without assistance or assistive devices? YESWOREST [email or web address] Information not available 03/29/2024 Do you have difficulty doing errands alone? No Information not available 03/29/2024 Are you able to care for yourself independently? 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 No [email or web address] Information not available 03/29/2024 What is your exercise level? Occasional MIGRATION.[id number] 026 Information not available 09/02/2022 Mental Status Question Answer Note LastModified by Organizat ion Details LastModified Time Do you feel stressed (tense, restless, nervous, or anxious, or unable to sleep at night)? [id number] [email or web address] Information not available 09/30/2022 Do you have difficulty concentrating, remembering or making decisions? No [email or web address] Information no t available 03/29/2024 Family History Relationship Description Onset Age of this Age Resolved Age Notes LastModified by Organization Details LastModified Time Father Malignant neoplastic disease MIGRATION.[id number] Not available 09/02/2022 14:11:42 Father Family history of malignant neoplasm MIGRATION.635 [id number] Not available 09/02/2022 14:11:42 Medical History Condition Response NERVE DISEASE N BLINDNESS N RHEUMATIC FEVER N KIDNEY STONES N BLADDER PROBLEMS N MRSA N OTHER # 1 N POLIO N LUNG DISEASE/DISORDER N COPD N RADIATION / CHEMOTHERAPY N Other # 2 N BLOOD DISEASES N EAR OR HEARING PROBLEMS N MUMPS N DEPRESSION (INCLUDING POST ) N BOWEL PROBLEMS N STROKE/TIA N ULCERS Y BENIGN PROSTATIC HYPERPLASIA N MEASLES N MYOCARDIAL INFARCTION N OBESITY N GERD/NAUSEA Y ANEURYSM Y URINARY/BLADDER/KIDNEY PROBLEMS N CORONARY ARTERY DISEASE (CAD) N ADDICTION CONCERNS N Impotence N ENDOMETRIOSIS N USE OF BLOOD THINNERS N SKIN PROBLEMS N GASTROINTESTINAL DISORDER N PERIPHERAL VASCULAR DISEASE N MUSCLE,JOINT OR BONE PROBLEMS N GASTROINTESTINAL BLEEDING N BLOOD CLOTS N ASTHMA N CATARACTS N ERECTILE DYSFUNCTION N VARICOSITIES N GI PROBLEMS Y Low Testosterone N INFERTILITY N AIDS/HIV N CHEMOTHERAPY / RADIATION N LIVER DISEASE N MALE HYPOGONADISM N HYPERTENSION Y Deficiency N TOURETTE'S N ANXIETY DISORDER N BLOOD TRANSFUSION Y ANEMIA/BLOOD DISORDER N CHRONIC EAR INFECTIONS N BRONCHITIS N TUBERCULOSIS N GLAUCOMA N FOOT PROBLEM N DIVERTICULITIS N SLEEP APNEA N CHICKENPOX N ALLERGIES/HAYFEVER N INFECTIOUS DISEASE N PROSTATE N HEART ARRHYTHMIA N INSOMNIA N HIGH CHOLESTEROL / HYPERLIPIDEMIA Y EYE PROBLEMS N HYPERTHYROIDISM N EDEMA N CHRONIC PAIN SYNDROME N HYPOTHYROIDISM N CAROTID BLOCKAGE N CONSTIPATION N BACK / NECK PROBLEMS N ATHEROSCLEROSIS N BREAST PROBLEMS N HERNIATED DISC N DIALYSIS N ECZEMA N OSTEOPOROSIS N ARTHRITIS Y APPENDICITIS N DIABETES, TYPE N BAD TEETH N ENT N HEARTBURN / REFLUX Y AUTISM SPECTRUM DISORDER (ASD) N HEPATITIS / LIVER DISEASE N GOUT N SLEEP DISORDER N ALZHEIMER'S DISEASE N Brain Problems N DEMENTIA N HERPES N SEIZURES/EPILEPSY N HEADACHES/MIGRAINES N VASCULAR DISEASE N PACEMAKER N Blood Disorder N DIZZINESS N HEAD TRAUMA OR INJURY N HEART DISEASE/HEART PROBLEMS Y KIDNEY DISEASE N MULTIPLE SCLEROSIS N CANCER: SPECIFY N CARDIAC ARRHYTHMIA N ANESTHESIA COMPLICATIONS N ATRIAL FIBRILLATION N Gall Stones N PULMONARY EMBOLISM N AUTOIMMUNE DISEASE N Immunizations Vaccine Type Date Status Note Provider Nam e and Address Organization Details Recorded Time COVID-19 vaccine, vector-nr, rS-Ad26, PF, 0.5 mL 1 completed MAYELA Schmitt, [facility] 03/29/2024 12:17:56 Influenza, high-dose, trivalent, PF 7 completed MAYELA Schmitt, [facility] 03/29/2024 12:17:56 Influenza, split virus, quadrivalent, PF 8 completed MAYELA Schmitt, [facility] 03/29/2024 12:17:57 RSV, recombinant, protein subunit RSVpreF, adjuvant reconstituted, 0.5 mL, PF 3 completed MAYELA Schmitt [facility] 08/02/2024 10:52:05 Influenza, high-dose, quadrivalent, PF 3 completed Erica Daly RMA null, [facility] 08/02/2024 10:52:05 Pneumococcal conjugate PCV20, polysaccharide [id number] conjugate, adjuvant, PF 4 completed Erica Daly RMA null, [facility] 08/02/2024 10:52:05 COVID-19, mRNA, LNP-S, PF, josé-sucrose, 30 mcg/0.3 mL 4 completed Erica Daly RMA null, [facility] 08/02/2024 10:52:06 COVID-19, mRNA, LNP-S, PF, 50 mcg/0.5 mL 3 completed Erica Daly RMA null, [facility] 08/02/2024 10:52:06 Influenza, high-dose, trivalent, PF 4 completed Erica Daly RMA null, [facility] 08/02/2024 10:52:06 Influenza, split virus, trivalent, preservative 3 completed Erica Daly RMA null, [facility] 03/29/2024 12:17:57 COVID-19, mRNA, LNP-S, PF, 100 mcg/0.5mL dose or 50 mcg/0.25mL dose 1 completed Erica Daly RMA null, [facility] 03/29/2024 12:17:56 SARS-COV-2 (COVID-19) vaccine, UNSPECIFIED 1 completed Erica Daly RMA null, [facility] 03/29/2024 12:17:56 Influenza, split virus, trivalent, preservative 5 completed Not Available [facility] 09/02/2022 14:17:27 Influenza, split virus, quadrivalent, PF 2 completed Not Available [facility] 09/02/2022 14:17:27 Influenza, split virus, quadrivalent, PF 0 completed Not Available [facility] 09/02/2022 14:17:27 Influenza, split virus, quadrivalent, PF 8 completed Not Available [facility] 09/02/2022 14:17:27 Tdap 7 completed Not Available [facility] 09/02/2022 14:17:27 Influenza, split virus, quadrivalent, PF 1 completed Not Available [facility] 09/02/2022 14:17:27 Influenza, split virus, quadrivalent, PF 5 completed Not Available [facility] 09/02/2022 14:17:27 Past Encounters Encounter ID Performer Location Encounter Start Date Encounter Closed Date Diagnosis/Indication Diagnosis SNOMED-CT Code Diagnosis ICD10 Code Diagnosis IMO Codes Diagnosis Note [id number] Kate arrington MD [facility] Internal [place] [address] [place] [address] y , [place] [address] 11/11/2020 00:00:00 11/11/2020 12:27:09 [id number] Kate arrington MD [facility] [place] [address] [place] [address] y , [place] [address] 05/12/2021 00:00:00 05/12/2021 14:32:08 [id number] Kate arrington MD [facility] Internal [place] [address] [place] [address] y , [place] [address] 10/01/2021 00:00:00 10/01/2021 14:32:58 [id number] Sander Rviera MD [facility] [place] [address] [place] [address] 11/14/2021 00:00:00 11/14/2021 14:17:28 [id number] Suleman Thornton MD [facility] [place] [address] [place] [address] 11/18/2021 00:00:00 11/18/2021 15:00:38 [id number] Suleman Thornton MD [facility] [place] [address] [place] [address] 12/05/2021 00:00:00 12/05/2021 11:47:44 [id number] Suleman Thornton MD [facility] [place] [address] [place] [address] 12/26/2021 00:00:00 12/26/2021 12:07:09 [id number] Oliver Rain MD [facility] [place] [address] [place] [address] 01/13/2022 00:00:00 01/13/2022 10:39:54 [id number] Suleman Thornton MD [facility] [place] [address] [place] [address] 01/21/2022 00:00:00 01/21/2022 17:15:30 [id number] Suleman Thornton MD [facility] [place] [address] [place] [address] 03/04/2022 00:00:00 03/04/2022 17:05:42 [id number] Kate arrington MD [facility] Internal Med [address] [place] [address] 04/01/2022 00:00:00 04/01/2022 16:38:35 [id number] Kate arrington MD [facility] Internal Med [address] [place] [address] 09/30/2022 13:59:27 09/30/2022 14:29:26 Screening - NAD [id number] Z13.9 C-Scope: 08/31/17: Dr Chapa-sc ope: 02/02/2020 : Dr Alaniz, tubular adenoma UTD on Tdap 2016UTD flu shot 05/22UTD on COVID 19 vaccine US AAA at age 63 years RTC in 4 monthsdo labsER if any symptoms worsenhe did verbalize his understand ing of the above Gastroesop hageal reflux disease without esophagitis 763899572 K21.9 On omeprazole Take as neededStat es that he did have an EGD done by Dr Polanco in 07/2022, get the report Hyperlipidemia 68630128 E78.5 On rosuvastat in 20mg dailyGet labs Cigarette smoker 6761319 7 F17.210 LDCT 01/25/2020 : Noted, aneurysm, sees Dr NathanLDCT 11/21/2020 : NotedLDCT 12/26/2021 : Noted 1 PPD for 30+ years Advised to quit! Aneurysm o f thoracic aorta 797548426 I71.20 S/p ECHO 02/08/19, and he has seen Dr Nathan, and f.u in one year from 02/15/19S/ p ECHO 02/13/2021 : Mod to severe ARS/p ECHO 04/07/2022 Dr Nathan 12/11/2020 , 03/12/2022 , is to get ECHO, f/u in one yearDenies any complaints Hypothyroidism 87142132 E03.9 On levothyrox ine 75mcgs daily US thyroid 12/26/2021 : Thyroiditi sENT 01/13/2022 Dr Rain Essential hypertension 21195648 I10 On amlodipine 5mg dailyOn losartan 100mg daily Does wellGet labs Heart murmur 62778381 R0 1.1 S/p ECHO 02/08/19, and he has seen Dr Nathan, and f.u in one year from 02/15/19S/ p ECHO 02/13/2021 Dr Nathan Denies any complaints , no shortness of breath or chest pain or pedal edema or pre syncope or syncope or palpitatio ns etc [id number] Kate arrington MD [facility] Internal [facility] [place] [address] , [place] [address] 03/31/2023 14:01:33 03/31/2023 14:28:20 Screening - NAD 036914611 Z13.9 C-Scope: 08/31/17: Dr Polanco-va ope: 02/02/2020 : Dr Alaniz, tubular adenoma UTD on Tdap 2016UTD flu shot 11/18UTD on COVID 19 vaccineCan do RSV vaccine US AAA at age 63 years, ordered 03/31/2023 RTC in 4 monthsdo labsER if any symptoms worsenhe did verbalize his understand ing of the above Gastroesop hageal reflux disease without esophagitis 581463061 K21.9 On omeprazole Take as neededStat es that he did have an EGD done by Dr Polanco in 07/2022, get the report Hyperlipidemia 16830118 E78.5 On rosuvastat in 20mg dailyGet labs Cigarette smoker 6479727 7 F17.210 LDCT 01/25/2020 : Noted, aneurysm, sees Dr NathanLDCT 11/21/2020 : NotedLDCT 12/26/2021 : NotedLDCT 02/04/2023 : Noted US AAA: 02/04/2023 : Neg 1 PPD for 30+ years Advised to quit! Aneurysm o f thoracic aorta 701215646 I71.20 S/p ECHO 02/08/19, and he has seen Dr Nathan, and f.u in one year from 02/15/19S/ p ECHO 02/13/2021 : Mod to severe ARS/p ECHO 04/07/2022 Dr Nathan 12/11/2020 , 03/12/2022 , is to get ECHO, f/u in one yearDenies any complaints Hypothyroidism 75763949 E03.9 On levothyrox ine 75mcgs daily US thyroid 12/26/2021 : Thyroiditi sENT 01/13/2022 Dr Rain Essential hypertension 99510510 I10 On amlodipine 5mg dailyOn losartan 100mg daily Does wellGet labs Heart murmur 73307334 R0 1.1 S/p ECHO 02/08/19, and he has seen Dr Nathan, and f.u in one year from 02/15/19S/ p ECHO 02/13/2021 Dr Nathan Denies any complaints , no shortness of breath or chest pain or pedal edema or pre syncope or syncope or palpitatio ns etc Screening for malignant neoplasm of prostate 891735027 Z12.5 [id number] Kate arrington MD [facility] Internal [facility] [place] [address] [facility] [place] [address] 10/20/2023 14:00:12 10/20/2023 14:33:28 Screening - NAD 955545128 Z13.9 C-Scope: 08/31/17: Dr Polanco-va ope: 02/02/2020 : Dr Alaniz, tubular adenoma UTD on Tdap 2017UTD flu shot 05/22UTD on COVID 19 vaccineCan do RSV vaccine US AAA at age 63 years, ordered 03/31/2023 RTC in 4 monthsdo labsER if any symptoms worsenhe did verbalize his understand ing of the above Gastroesop hageal reflux disease without esophagitis 127338816 K21.9 On omeprazole Take as neededStat es that he did have an EGD done by Dr Polanco in 07/2022, get the report Hyperlipidemia 55025518 E78.5 On rosuvastat in 20mg dailyGet labs Cigarette smoker 4393968 7 F17.210 LDCT 01/25/2020 : Noted, aneurysm, sees Dr NathanLDCT 11/21/2020 : NotedLDCT 12/26/2021 : NotedLDCT 02/04/2023 : Noted US AAA: 02/04/2023 : Neg 1 PPD for 30+ years Advised to quit! Aneurysm o f thoracic aorta 778589778 I71.20 S/p ECHO 02/08/19, and he has seen Dr Nathan, and f.u in one year from 02/15/19S/ p ECHO 02/13/2021 : Mod to severe ARS/p ECHO 04/07/2022 Dr Nathan 12/11/2020 , 03/12/2022 , is to get ECHO, f/u in one yearDenies any complaints Hypothyroidism 68815144 E03.9 On levothyrox ine 75mcgs daily US thyroid 12/26/2021 : Thyroiditi sENT 01/13/2022 Dr Rain Essential hypertension 72811666 I10 On amlodipine 5mg dailyOn losartan 100mg daily Does wellGet labs Heart murmur 60696396 R0 1.1 S/p ECHO 02/08/19, and he has seen Dr Nathan, and f.u in one year from 02/15/19S/ p ECHO 02/13/2021 Dr Nathan Denies any complaints , no shortness of breath or chest pain or pedal edema or pre syncope or syncope or palpitatio ns etc Screening for malignant neoplasm of prostate 835496359 Z12.5 Macrocytosis 457998981 D 75.89 Vitamin D deficiency 347 27702 E55.9 [id number] Kate arrington MD [facility] [place] [address] [facility] [place] [address] 03/29/2024 11:27:00 03/29/2024 12:24:07 Screening - NAD 451471947 Z13.9 C-Scope: 08/31/17: Dr Polanco-va ope: 02/02/2020 : Dr Alaniz, tubular adenoma UTD on Tdap 2016UTD flu shot 05/22UTD on COVID 19 vaccineCan do RSV vaccineGet PCV #20Get shingrix vaccine [place] AAA at age 63 years, ordered 03/31/2023 RTC in 4 monthsdo labsER if any symptoms worsenhe did verbalize his understand ing of the above Gastroesop hageal reflux disease without esophagitis 645381728 K21.9 On omeprazole Take as neededStat es that he did have an EGD done by Dr Polanco in 07/2022, get the report Hyperlipidemia 92772859 E78.5 On rosuvastat in 20mg daily, more diet and exercise is neededGet labs Cigarette smoker 8681976 7 F17.210 LDCT 01/25/2020 : Noted, aneurysm, sees Dr NathanLDCT 11/21/2020 : NotedLDCT 12/26/2021 : NotedLDCT 02/04/2023 : NotedLDCT 02/11/2024 : Neg US AAA: 02/04/2023 : Neg 1 PPD for 30+ years Advised to quit! Aneurysm o f thoracic aorta 035557072 I71.20 S/p ECHO 02/08/19, and he has seen Dr Nathan, and f.u in one year from 02/15/19S/ p ECHO 02/13/2021 : Mod to severe ARS/p ECHO 04/07/2022 Dr Nathan 12/11/2020 , 03/12/2022 , is to get ECHO, f/u in one yearDenies any complaints Hypothyroidism 68762719 E03.9 On levothyrox ine 75mcgs daily US thyroid 12/26/2021 : Thyroiditi sENT 01/13/2022 Dr Rain Essential hypertension 29151261 I10 On amlodipine 5mg dailyOn losartan 100mg daily Does wellGet labs Heart murmur 99347825 R0 1.1 S/p ECHO 02/08/19, and he has seen Dr Nathan, and f.u in one year from 02/15/19S/ p ECHO 02/13/2021 Dr Nathan Denies any complaints , no shortness of breath or chest pain or pedal edema or pre syncope or syncope or palpitatio ns etc Macrocytosis 328294337 D 75.89 Vitamin D deficiency 347 41405 E55.9 Adult heal th examination 911575150 Z00.00 Screening for disorder 093812759 Z13.9 Administra tion of pneumococcal vaccine 06587926 Z23 [id number] Carlos Ngo MD [facility] [address] 05/29/2024 10:44:22 05/29/2024 11:38:28 Pain of right knee joint 2882767470 97238 M25.451 [id number] Carlos Ngo MD [address], [place] [address] 07/11/2024 14:13:57 07/11/2024 15:14:49 Pain of right knee joint 6169289929 87644 M25.561 Pain of le ft shoulder joint 2290236735 7208160 M25.891 [id number] Kate arrington MD [facility] Primary Care [address] [place] [address] 08/02/2024 10:43:25 08/02/2024 11:25:06 Screening - NAD 357134468 Z13.9 C-Scope: 08/31/17: Dr Chapa-va ope: 02/02/2020 : Dr Alaniz, tubular adenoma UTD on Tdap 2016UTD flu shot 05/22UTD on COVID 19 vaccineCan do RSV vaccineGet PCV #20Get shingrix vaccine [place] AAA at age 63 years, ordered 03/31/2023 RTC in 4 monthsdo labsER if any symptoms worsenhe did verbalize his understand ing of the above Gastroesop hageal reflux disease without esophagitis 350855305 K21.9 On omeprazole Take as neededStat es that he did have an EGD done by Dr Polanco in 07/2022, get the report Hyperlipidemia 07154035 E78.5 On rosuvastat in 20mg daily, more diet and exercise is neededGet labs Cigarette smoker 0398895 7 F17.210 LDCT 01/25/2020 : Noted, aneurysm, sees Dr NathanLDCT 11/21/2020 : NotedLDCT 12/26/2021 : NotedLDCT 02/04/2023 : NotedLDCT 02/11/2024 : Neg US AAA: 02/04/2023 : Neg 1 PPD for 30+ years Advised to quit! Aneurysm o f thoracic aorta 514585474 I71.20 S/p ECHO 02/08/19, and he has seen Dr Nathan, and f.u in one year from 02/15/19S/ p ECHO 02/13/2021 : Mod to severe ARS/p ECHO 04/07/2022 S/p ECHO 04/28/2024 : AR/ASUS AAA 04/28/2024 Dr Nathan 12/11/2020 , 03/12/2022 , is to get ECHO, f/u in one yearDenies any complaints Dr Nathan 03/31/2024 , f/u in one year Hypothyroidism 06292727 E03.9 On levothyrox ine 75mcgs daily US thyroid 12/26/2021 : Thyroiditi sENT 01/13/2022 Dr Rain Essential hypertension [id number] I10 On amlodipine 5mg dailyOn losartan 100mg daily Does wellGet labs Heart murmur 44024446 R0 1.1 S/p ECHO 02/08/19, and he has seen Dr Nathan, and f.u in one year from 02/15/19S/ p ECHO 02/13/2021 Dr Nathan OV 08/02/2024 :Does have CP, he is very adamant that he does NOT want to go to the ER, agreeable to see cardiology , Dr Nathan, but since he is on vacation, will refer to Dr Fung, personally spoke with Dr Fung and he will be see stat todayDenie s any complaints , no shortness of breath or pedal edema or pre syncope or syncope or palpitatio ns etc Macrocytosis [id number] D 75.89 Vitamin D deficiency 347 40558 E55.9 [id number] Kate arrington MD [facility] Michelle vidal [address] [facility] [address] [place] [address] 12/11/2024 14:18:12 12/11/2024 15:23:46 Screening - NAD [id number] Z13.9 C-Scope: 08/31/17: Dr Polanco-sc ope: 02/02/2020 : Dr Alaniz, tubular adenoma UTD on Tdap 2016UTD flu shot 05/22UTD on COVID 19 vaccineCan do RSV vaccineGet PCV #20Get shingrix vaccine US AAA at age 63 years, ordered 03/31/2023 RTC in 1 monthdo labsER if any symptoms worsenhe did verbalize his understand ing of the above 45 minutes spent with the patient, his discharge summary was reviewed, did call and also discuss his care with Dr Nathan and obtained apt with his office on 12/12/2024 at 9.30amSeen patient at 1.30pm till 2.15pm Gastroesop hageal reflux disease without esophagitis 592422982 K21.9 On omeprazole Take as neededStat es that he did have an EGD done by Dr Polanco in 07/2022, get the report Hyperlipidemia 54055663 E78.5 On rosuvastat in 20mg daily, more diet and exercise is neededGet labs Cigarette smoker 9419573 7 F17.210 LDCT 01/25/2020 : Noted, aneurysm, sees Dr NathanLDCT 11/21/2020 : NotedLDCT 12/26/2021 : NotedLDCT 02/04/2023 : NotedLDCT 02/11/2024 : Neg US AAA: 02/04/2023 : Neg 1 PPD for 30+ years Advised to quit! Aneurysm o f thoracic aorta [id number] I71.20 S/p ECHO 02/08/19, and he has seen Dr Nathan, and f.u in one year from 02/15/19S/ p ECHO 02/13/2021 : Mod to severe ARS/p ECHO 04/07/2022 S/p ECHO 04/28/2024 : AR/ASUS AAA 04/28/2024 Dr Nathan 12/11/2020 , 03/12/2022 , is to get ECHO, f/u in one yearDenies any complaints Dr Nathan 03/31/2024 , f/u in one year Hypothyroidism 79027181 E03.9 On levothyrox ine 75mcgs daily US thyroid 12/26/2021 : Thyroiditi sENT 01/13/2022 Dr Rain Essential hypertension 36246691 I10 Not on amlodipine 5mg dailyOn losartan 100mg daily Does wellGet labs Heart murmur 33656703 R0 1.1 S/p ECHO 02/08/19, and he has seen Dr Nahtan, and f.u in one year from 02/15/19S/ p ECHO 02/13/2021 Dr Nathan OV 08/02/2024 :Does have CP, he is very adamant that he does NOT want to go to the ER, agreeable to see cardiology , Dr Nathan, but since he is on vacation, will refer to Dr Fung, personally spoke with Dr Fung and he will be see stat todayDenie s any complaints , no shortness of breath or pedal edema or pre syncope or syncope or palpitatio ns etc S/p admitted and d/c to 11/18/2024 for AVRH/H 7.9/23.2: Hospital labsKeep apt with Dr Nathan Macrocytosis 260815054 D 75.89 Vitamin D deficiency 347 99898 E55.9 [id number] Kate arrington MD [facility] Primary [facility] Michelle vidal [address] [facility] [address] [facility] [place] [address] 01/10/2025 14:49:01 01/10/2025 16:13:04 Screening - NAD [id number] Z13.9 C-Scope: 08/31/17: Dr Chapa-sc ope: 02/02/2020 : Dr Alaniz, tubular adenoma UTD on Tdap 2016UTD flu shot 05/22UTD on COVID 19 vaccineCan do RSV vaccineGet PCV #20Get shingrix vaccine US AAA at age 63 years, ordered 03/31/2023 RTC in 3 monthsdo labsER if any symptoms worsenhe did verbalize his understand ing of the above 45 minutes spent with the patient and his wifeLabs from [facility] obtained and reviewedSe en patient at 2.15pm till 3.00pm Gastroesop hageal reflux disease without esophagitis [id number] K21.9 On omeprazole Take as neededStat es that he did have an EGD done by Dr Polanco in 07/2022, get the report Hyperlipidemia 74516866 E78.5 On rosuvastat in 20mg daily, more diet and exercise is neededGet labs Cigarette smoker 6215348 7 F17.210 LDCT 01/25/2020 : Noted, aneurysm, sees Dr NathanLDCT 11/21/2020 : NotedLDCT 12/26/2021 : NotedLDCT 02/04/2023 : NotedLDCT 02/11/2024 : Neg US AAA: 02/04/2023 : Neg 1 PPD for 30+ years Advised to quit! Aneurysm o f thoracic aorta 435199594 I71.20 S/p ECHO 02/08/19, and he has seen Dr Nathan, and f.u in one year from 02/15/19S/ p ECHO 02/13/2021 : Mod to severe ARS/p ECHO 04/07/2022 S/p ECHO 04/28/2024 : AR/ASUS AAA 04/28/2024 ECHO 12/20/2024 Dr Nathan 12/11/2020 , 03/12/2022 , is to get ECHO, f/u in one yearDenies any complaints Dr Nathan 03/31/2024 , f/u in one yearDr Nathan 12/15/2024 , f/u in one year Hypothyroidism 74378256 E03.9 On levothyrox ine 75mcgs daily US thyroid 12/26/2021 : Thyroiditi sENT 01/13/2022 Dr Rain Essential hypertension 63584533 I10 Not on amlodipine 5mg dailyOn losartan 100mg daily Does wellGet labs Heart murmur 45342035 R0 1.1 S/p ECHO 02/08/19, and he has seen Dr Nathan, and f.u in one year from 02/15/19S/ p ECHO 02/13/2021 Dr Nathan OV 08/02/2024 :Does have CP, he is very adamant that he does NOT want to go to the ER, agreeable to see cardiology , Dr Nathan, but since he is on vacation, will refer to Dr Fung, personally spoke with Dr Fung and he will be see stat todayDenie s any complaints , no shortness of breath or pedal edema or pre syncope or syncope or palpitatio ns etc S/p admitted and d/c to 11/18/2024 for AVRH/H 7.03/27.2: Hospital labsKeep apt with Dr Nathan Macrocytosis 610130623 D 75.89 Vitamin D deficiency 347 25189 E55.9 Anemia 579888890 D64.9 [id number] Get labsMore iron in diet Health Concerns Section Related Observation LastModified by Organization Detai ls LastModified Time None Recorded Concern Status LastModified by Organization Details LastModified Time None Recorded Advance Directives Directive N: Payers Insurance Date Sequence Insurance Name Policy Number Policy Shah Covered Member ID Shah Member ID Guarantor Name 01/15/2025 1 [facility] (MEDICARE REPLACEMENT/ ADVANTAGE - HMO) [id number] Glenn Blake [id number] Glenn Blake 07/06/2024 1 [employer] (MEDICARE REPLACEMENT/ ADVANTAGE - HMO) [id number] Glenn Blake [id number] Glenn Blake 05/29/2024 1 [facility] [id number] Glenn Blake [id number] Glenn Blake 09/02/2022 [employer] Glenn Blake Notes Date Note Type Note Provider Name and Address Organization Details Recorded Time 08/02/2024 text/html 08/10/17Here to establish carePast Hx:HTNGERDSmokerRe viewed social family and surgical historyHere to discuss above and also discuss the labs that were ordered by the INTERMODAL TRUCK DRIVER DianeTodawagner 12/08/17:Here for his routine aptHe states that he is doing well at this timeHe would like a refill for his flexerill OV 08/03/18:Here for his routine aptHe states that he is doing wellHe did do the labs n 07/11/18 OV 02/01/19:Here for his routine aptHe states that he is doing very well, but he has not done all his labsHis extensive ROS is negativeOV 08/02/2019:Here for his routine aptHe states that he is doing well, he has stopped the opiates as herOV 11/29/2019:Here for an ACV:C/o LLQ abd pain since at least 3 -4 daysPain is crampy no radiation, not associated with any food intakeHis appetite is good and he is able to hydrate wellNo nausea or vomitingNo blood in the stool or the urineNo fevers or chillsNo rashNo other complaintsOV 12/11/2019:ACV:The LLQ pain is not gone and now has severe diarrheaNo N/VSome blood in the stoolAs per his he does have fevers and chillsHe has not been able to finish his antibiotics as he has had a rash, he states that the abd pain was better on and Wednesday but since Sat and Sun it is getting worse with the fevers and diarrhea alsoOV 12/18/2019:Here for his post hospital aptHe states that his abd pain is resolved, some diarrhea, but even this is getting much betterHe is eating a regular dietHe has not done the labs since his last A1C levelHe is here with his wifeOV 02/19/2020:Here with tele visitHe agreeable to do thisHe did do the labsHe is doing wellOV 11/11/2020:Here for his routine aptHe feels wellHe has not yet done his labs, as he states that he is 'very busy at work'OV 05/12/2021:Here for his routine aptHe states that he is doing very wellHe did do the labsOV 10/01/2021:Here for his routine apt, wellness aptHe is doing wellLabs done on 2OV 04/02/2022:Here for his routine apt, he feels well, he did do the labs on 03/20/2022 OV 03/31/2023: Here for his f/u apt, he is doing well today, he did do the labs on 03/05/2023 OV 10/20/2023: Here for his routine apt, he feels well today OV 03/29/2024: Here for his f/u apt, he is doing well today, he did do the labs OV 08/02/2024: Here for his f/u apt, he has noted some L chest pain, sharp, lasts for 'few seconds' and then resolves, no palpitations, no SOB, no syncope or presyncope, not associated with exercise, none now, last episode was yesterday at rest Kate St MD [address] [facility], [address], [place], [address], [place] [facility] 08/02/2024 11:28:16 12/11/2024 text/html 08/10/17Here to establish carePast Hx:HTNGERDSmokerRe viewed social family and surgical historyHere to discuss above and also discuss the labs that were ordered by the INTERMODAL TRUCK DRIVER DianeToday 12/08/17:Here for his routine aptHe states that he is doing well at this timeHe would like a refill for his flexerill OV 08/03/18:Here for his routine aptHe states that he is doing wellHe did do the labs n 07/11/18 OV 02/01/19:Here for his routine aptHe states that he is doing very well, but he has not done all his labsHis extensive ROS is negativeOV 08/02/2019:Here for his routine aptHe states that he is doing well, he has stopped the opiates as herOV 11/29/2019:Here for an ACV:C/o LLQ abd pain since at least 3 -4 daysPain is crampy no radiation, not associated with any food intakeHis appetite is good and he is able to hydrate wellNo nausea or vomitingNo blood in the stool or the urineNo fevers or chillsNo rashNo other complaintsOV 12/11/2019:ACV:The LLQ pain is not gone and now has severe diarrheaNo N/VSome blood in the stoolAs per his he does have fevers and chillsHe has not been able to finish his antibiotics as he has had a rash, he states that the abd pain was better on and Wednesday but since Sat and Sun it is getting worse with the fevers and diarrhea alsoOV 12/18/2019:Here for his post hospital aptHe states that his abd pain is resolved, some diarrhea, but even this is getting much betterHe is eating a regular dietHe has not done the labs since his last A1C levelHe is here with his wifeOV 02/19/2020:Here with tele visitHe agreeable to do thisHe did do the labsHe is doing wellOV 11/11/2020:Here for his routine aptHe feels wellHe has not yet done his labs, as he states that he is 'very busy at work'OV 05/12/2021:Here for his routine aptHe states that he is doing very wellHe did do the labsOV 10/01/2021:Here for his routine apt, wellness aptHe is doing wellLabs done on 2OV 04/02/2022:Here for his routine apt, he feels well, he did do the labs on 03/20/2022 OV 03/31/2023: Here for his f/u apt, he is doing well today, he did do the labs on 03/05/2023 OV 10/20/2023: Here for his routine apt, he feels well today OV 03/29/2024: Here for his f/u apt, he is doing well today, he did do the labs OV 08/02/2024: Here for his f/u apt, he has noted some L chest pain, sharp, lasts for 'few seconds' and then resolves, no palpitations, no SOB, no syncope or presyncope, not associated with exercise, none now, last episode was yesterday at rest OV 12/11/2024: Here for his f/u apt, he feels well today, he is here with his Brandy, he is s/p AVR and now has an apt with Dr Oliveira his CT surgeon on Wednesday, he does not yet have an apt with Dr Venita St MD [address] [facility], [facility] [address], [place], [address], [facility] 12/11/2024 15:23:38 01/10/2025 text/html 08/10/17Here to establish carePast Hx:HTNGERDSmokerRe viewed social family and surgical historyHere to discuss above and also discuss the labs that were ordered by the INTERMODAL TRUCK DRIVER George 12/08/17:Here for his routine aptHe states that he is doing well at this timeHe would like a refill for his flexerill OV 08/03/18:Here for his routine aptHe states that he is doing wellHe did do the labs n 07/11/18 OV 02/01/19:Here for his routine aptHe states that he is doing very well, but he has not done all his labsHis extensive ROS is negativeOV 08/02/2019:Here for his routine aptHe states that he is doing well, he has stopped the opiates as herOV 11/29/2019:Here for an ACV:C/o LLQ abd pain since at least 3 -4 daysPain is crampy no radiation, not associated with any food intakeHis appetite is good and he is able to hydrate wellNo nausea or vomitingNo blood in the stool or the urineNo fevers or chillsNo rashNo other complaintsOV 12/11/2019:ACV:The LLQ pain is not gone and now has severe diarrheaNo N/VSome blood in the stoolAs per his he does have fevers and chillsHe has not been able to finish his antibiotics as he has had a rash, he states that the abd pain was better on and Wednesday but since Sat and Sun it is getting worse with the fevers and diarrhea alsoOV 12/18/2019:Here for his post hospital aptHe states that his abd pain is resolved, some diarrhea, but even this is getting much betterHe is eating a regular dietHe has not done the labs since his last A1C levelHe is here with his wifeOV 02/19/2020:Here with tele visitHe agreeable to do thisHe did do the labsHe is doing wellOV 11/11/2020:Here for his routine aptHe feels wellHe has not yet done his labs, as he states that he is 'very busy at work'OV 05/12/2021:Here for his routine aptHe states that he is doing very wellHe did do the labsOV 10/01/2021:Here for his routine apt, wellness aptHe is doing wellLabs done on 2OV 04/02/2022:Here for his routine apt, he feels well, he did do the labs on 03/20/2022 OV 03/31/2023: Here for his f/u apt, he is doing well today, he did do the labs on 03/05/2023 OV 10/20/2023: Here for his routine apt, he feels well today OV 03/29/2024: Here for his f/u apt, he is doing well today, he did do the labs OV 08/02/2024: Here for his f/u apt, he has noted some L chest pain, sharp, lasts for 'few seconds' and then resolves, no palpitations, no SOB, no syncope or presyncope, not associated with exercise, none now, last episode was yesterday at rest OV 12/11/2024: Here for his f/u apt, he feels well today, he is here with his Brandy, he is s/p AVR and now has an apt with Dr Oliveira his CT surgeon on Wednesday, he does not yet have an apt with Dr Nathan OV 01/10/2025: Here for his f/u apt, he is doing wellHe is here with his Kate St MD [address] [place] [address], [address], [place], [address], [place] [facility] 01/10/2025 18:42:05
--- OUTSIDE RECORDS SUMMARY | 2025-05-03 14:24 | XMS_ITS | Clinical Summary ---
Author Organization [facility] Address [address] [place] [address] Care Team Providers Care Spotter Name Role Phone Kate St MD Primary Care Provider Source Comments [facility],non-owned Affiliates and Associated Physician Practices is amultiple site organization consisting of ambulatory clinics and hospital sitesin [place], [place], [place] and [place]. This disclosure is being madepursuant to the Care Everywhere program and may not contain all information available regarding this patient. Last updated 18.[facility] Allergies No known active allergies Medications * Be aware that medications may not be up to date on this document. Alwaysverify current medications with the patient. losartan (COZAAR) 50 MG tablet losartan 50 mg tablet TAKE 1 TABLET BY MOUTH ONCE DAILY DIRECTED FOR 90 DAYS Active amLODIPine (NORVASC) 5 MG tablet TAKE 1 TABLET BY MOUTH ONCE DAILY DIRECTED FOR 90 DAYS 0 Active rosuvastatin (CRESTOR) 20 MG tablet rosuvastatin 20 mg tablet TAKE 1 TABLET BY MOUTH ONCE DAILY Active omeprazole (PRILOSEC) 20 MG capsule Take 20 mg by mouth at bedtime 0 Active Multiple Vitamins-Minera ls (MULTIVITAMIN ADULTS 50+ PO) multivitamin 1 tablet daily Active Active Problems Problem Noted Date Diagnosed Date Elevated liver enzymes 08/09/2019 HTN (hypertension) 08/01/2019 HLD (hyperlipidemia) 08/01/2019 Resolved Problems Problem Noted Date Diagnosed Date Resolved Date PUD (peptic ulcer disease) 08/01/2019 0 08/01/2019 Immunizations Immunization Administration Dates Next Due HEP A/HEP B 09/05/2019,08/01/2019 HEP B VACCINE, ADULT 3 DOSE 01/30/2020 Social History Tobacco Use Types Packs/Day Years Used Date Smoking Tobacco: Every Day Cigarettes 1 25 Smokeless Tobacco: Never Tobacco Cessation:Ready to Q uit: No; Counseling Given: Yes Alcohol Use Standard Drinks/Week Comments Yes 5 (1 standard drink = 0.6 oz pur e alcohol) RUM, couple drinks daily Sex and Gender Information Value Date Recorded Sex Assigned at Not on file Legal Sex Male 3:16 PM CDT Gender Identity Not on file Sexual Orientation Not on file Last Filed Vital Signs Vital Sign Reading Time Taken Comments Blood Pressure 148/87 01/30/2020 8:36 AM CDT Pulse 76 01/30/2020 8:36 AM CDT Temperature 36.7 C (98 F) 01/30/2020 8:36 AM CDT Respiratory Rate 20 01/30/2020 8:36 AM CDT Oxygen Saturation 100% 01/30/2020 8:36 AM CDT Inhaled Oxygen Concentration - - Weight 86 kg (189 lb 8 oz) 01/30/2020 8:36 AM CD T Height 177.8 cm (5' 10) 01/30/2020 8:36 AM CDT Body Mass Index 27.19 01/30/2020 8:36 AM CDT Plan of Treatment Health Maintenance Due Date Last Done Comments COLOGUARD (AGES 45-75) - COLON CA SCREENING 1958 COLON MONITORING 1958 COLONOSCOPY - COLON CA SCREENING 1958 CT COLONOGRAPHY - COLON CA SCREENING 1958 Colorectal Cancer Screening 1958 FIT - COLON CA SCREENING 1958 FLEX SIG - COLON CA SCREENING 1958 HEPATITIS C SCREENING 01/08/1976 DTAP/TDAP/TD VACCINES (1 - Tdap) 1977 PNEUMOCOCCAL VACCINE 50+ (1 of 2 - PCV) 1977 ZOSTER VACCINE (1 of 2) 01/13/2008 SCREENING FOR DIABETES 08/01/2019 AAA SCREENING 2023 DEPRESSION SCREENING 07/05/2024 COVID-19 VACCINE (1 - season) 2025 INFLUENZA VACCINE (#1) 2025 0, 08/10/2017, 04/18/2015, Additional history exists Respiratory Syncytial Virus (RSV) Vaccine Pt: or over 60 yrs (1 - 1-dose 75+ series) 2033 HEPATITIS B VACCINE Completed 01/30/2020, 09/05/2019, 08/01/2019 HIB VACCINE Aged Out No longer eligi ble based on patient's age to complete this topic HPV VACCINE Aged Out No longer eligi ble based on patient's age to complete this topic MENINGOCOCCAL (Group B) VACCINE SHARED DECISION-MAKING Aged Out No longer eligible based on patient's age to complete this topic MENINGOCOCCAL GROUPS A/C/Y/W VACCINE Aged Out No longer eligible based on patient's age to complete this topic Goals Goal Patient Goal Type Associated Problems Recent Progress Patient-Stated? Author Medication Management General On track( 020 3:12 PM SUPERVISOR PATCHING) Jose Fraga, RN Note: Expected end date: Interventions: Take all medications as prescribed Let your doctor know right away about any changes in your medications Make sure to request a refill of your medication at least one week prior to your last dose Insurance [facility] [place] [address] [facility] C[facility] Care Teams Spotter Relationship Specialty Start Date End Date Kate St MD [address] [id number] PCP - General Internal Medicine 03/20/19
--- OUTSIDE RECORDS SUMMARY | 2025-05-03 14:24 | XMS_ITS | Encounter Summary ---
Author Organization [facility] Address [address] [place] [address] Care Team Providers Care Computer Video Game Designer Name Role Phone Elizabeth St MD Primary Care Provide r Encounter Details Date Type Department Care Team (Late st Contact Info) Description 11/28/2024 [facility] Post Discharge Follow up phone call [address] [address] [place] Social History Tobacco Use Types Packs/Day Years Used Date Smoking Tobacco: Former Cigarettes Q uit: 11/14/1984 Smokeless Tobacco: Never Comments:Quit smoking 11/06/24 ; Smoking cessation booklet given to pt; [facility] Utilities Answer Date Recorded In the past 12 months has th e electric, gas, oil, or water company threatened to shut off services in your home? No 11/14/2024 Social Connection and Isolation Panel Answer Date Recorded In a typical week, how many times do you talk on the phone with family, friends, or neighbors? Twice a week 11/14/2024 How often do you get together with friends or re latives? Twice a week 11/14/2024 How often do you attend episcopal or yarsani serv ices? Never 11/14/2024 Do you belong to any clubs o r organizations such as episcopal groups, unions, fraternal or athletic groups, or school groups? No 11/14/2024 How often do you attend meet ings of the clubs or organizations you belong to? Never 11/14/2024 Are you , , di vorced, , never , or living with a partner? 11/14/2024 AUDIT-C Answer Date Recorded Q1: How often do you have a drink containing alc ohol? 2-3 times a week 11/14/2024 Q2: How many drinks containi ng alcohol do you have on a typical day when you are drinking? 3 or 4 11/14/2024 Q3: How often do you have si x or more drinks on one occasion? Weekly 11/14/2024 Overall Financial Resource Strain (CARDIA) Answe r Date Recorded How hard is it for you to pa y for the very basics like food, housing, medical care, and heating? Not very hard 11/14/2024 Hunger Vital Sign Answer Date Recorded Within the past 12 months, y ou worried that your food would run out before you got the money to buy more. Never true 11/15/19 25 Within the past 12 months, t he food you bought just didn't last and you didn't have money to get more. Never true 11/14/2024 PRAPARE - Transportation Answer Date Re corded In the past 12 months, has l ack of transportation kept you from medical appointments or from getting medications? No 11/02 In the past 12 months, has l ack of transportation kept you from meetings, work, or from getting things needed for daily living? No 11/14/2024 Housing Stability Vital Sign Answer Ihsan e Recorded Unable to Pay for Housing in the Last Year Not o n file 11/14/2024 In the past 12 months, how m any times have you moved where you were living? 0 11/14/2024 At any time in the past 12 m [facility], were you homeless or living in a prison (including now)? No 11/14/2024 Personal Safety Answer Date Recorded Have you ever been in or are you currently in a harmful physical or emotional relationship or is someone making you feel afraid or unsafe? Denies 11/13/2024 Sex and Gender Information Value Date Recorded Sex Assigned at Not on file Legal Sex Male 3:59 AM MEDICAL ESTHETICIAN Gender Identity Not on file Sexual Orientation Not on file documented as of this encounter Plan of Treatment Not on file documented as of this encounter Visit Diagnoses Not on filedocumented in this encounter Care Teams Computer Video Game Designer Relationship Specialty Start Date End Date Elizabeth St MD [address] [address] PCP - General Internal Medicine 09/12/24 documented as of this encounter
--- OUTSIDE RECORDS SUMMARY | 2025-05-03 14:24 | XMS_ITS | Clinical Summary ---
Author Organization [facility] [address] [place] [id number] Care Team Providers Care Sales Training Representative Name Role Phone Elizabeth St MD Primary Care Provide r Allergies Active Allergy Reactions Criticality Noted Date Comments Aspirin Hives,Rash High 02/08/2019 Only the enteric coating ASA Ibuprofen Rash Medium 11/07/2024 Levofloxacin Hives,Itching Medium 10/16/2024 Metronidazole Hives,Itching Medium 10/16/2024 Naproxen Rash Medium 11/07/2024 Medications MULTIVITAMIN ORAL Take 1 tablet by mouth every morning 9 Active rosuvastatin (CRESTOR) 20 mg tablet Take 1 tablet (20 mg total) by mouth every morning 5 Active omeprazole (PriLOSEC) 20 mg capsule Take 1 capsule (20 mg total) by mouth nightly Active losartan (COZAAR) 50 mg tablet Take 1 tablet (50 mg total) by mouth every morning Active levothyroxine (SYNTHROID) 75 mcg tablet Take 1 tablet (75 mcg total) by mouth emissions inspector before breakfast 5 Active aspirin 81 mg enteric coated tablet Take 1 tablet (81 mg total) by mouth every morning Active loratadine (Claritin) 10 mg tablet Take 1 tablet (10 mg total) by mouth every morning 3 Active Active Problems Problem Noted Date Diagnosed Date History of aortic insufficiency 11/13/2024 Temporal arteritis 10/17/2024 Osteoarthritis 10/17/2024 Hypertensive disorder 10/17/2024 Chronic gastritis 10/17/2024 Aortic valve regurgitation 10/16/2024 Bicuspid aortic valve 08/23/2024 Chest pain 08/02/2024 Vitamin D deficiency 10/20/2023 Heart murmur 09/30/2022 Gastroesophageal reflux disease without esophagi tis 09/30/2022 Aneurysm of thoracic aorta 09/30/2022 Cigarette smoker 09/30/2022 Thyroid nodule 01/13/2022 Hypothyroidism 01/13/2022 Closed intra-articular -punch fracture of rad ius 12/05/2021 Tobacco dependence syndrome 08/17/2018 Chronic obstructive pulmonary disease 08/17/2018 Aortic aneurysm of unspecified site, without rup ture 08/17/2018 Hyperlipidemia 07/08/2018 Surgical History Surgery Date Site/Laterality Comments APPENDECTOMY x2 FRACTURE SURGERY Left compound fx of ankle, surgery x3 COLONOSCOPY CARDIAC CATHETERIZATION Medical History Medical History Date Comments Hyperlipidemia COPD (chronic obstructive pulmonary disease) Arthritis osteoarthritis GERD (gastroesophageal reflux disease) Vitamin D deficiency Hypothyroidism Aortic aneurysm without rupt ure, unspecified portion of aorta Hypertension Heart murmur Aortic valve regurgitation Aortic valve insufficiency History of transfusion 1989 had trans fusion for bleeding ulcer Family History Relation Name Status Comments Father Mother Social History Tobacco Use Types Packs/Day Years Used Date Smoking Tobacco: Former Cigarettes Q uit: 11/14/1984 Smokeless Tobacco: Never Tobacco Cessation:Counseling Given: Yes Comments:Quit smoking 11/06/24; Smoking cessation booklet given to pt; [facility] Utilities Answer Date Recorded In the [...] week 11/14/2024 How often do you attend baptism or mosque serv ices? Never 11/14/2024 Do you belong to any clubs o r organizations such as baptism groups, unions, fraternal or athletic groups, or [...] any time in the past 12 m [facility], were you homeless or living in a care home (including now)? No 11/14/2024 Personal Safety Answer Date Recorded Have you ever been in or are you currently in a harmful physical or emotional relationship or is someone making you feel afraid or unsafe? Denies 11/13/2024 Sex and Gender Information Value Date Recorded Sex Assigned at Not on file Legal Sex Male 3:59 AM [employer] Gender Identity Not on file Sexual Orientation Not on file Obstetrics History Last Filed Vital Signs Vital Sign Reading Time Taken Comments Blood Pressure 100/69 11/18/2024 12:00 PM CDT Pulse 67 11/18/2024 12:00 PM CDT Temperature 36.6 C (97.9 F) 11/18/2024 12:00 PM CDT Respiratory Rate 18 11/18/2024 12:00 PM CDT Oxygen Saturation 95% 11/18/2024 12:00 PM CDT Inhaled Oxygen Concentration - - Weight 80.9 kg (178 lb 5.6 oz) 11/17/2024 6:00 A M CDT Height 177.8 cm (5' 10) 11/13/2024 6:44 AM CDT Body Mass Index 25.59 11/13/2024 6:44 AM CDT Plan of Treatment Health Maintenance Due Date Last Done Comments Colon Cancer Screening-Colonoscopy 1960 Depression Screening 1960 Hepatitis C Screening 1960 Prostate Cancer Screening-PSA 1960 Zoster Vaccine (1 of 2) 01/13/2008 Abdominal Aortic Aneurysm (A AA) Screen 2023 Well Visit 65+ 2023 Covid-19 Vaccine (5 - 2023-2 5 season) 2025 04/22/2024, 05/01/2023, 06/21/2021, Additional history exists Influenza Vaccine (#1) 2025 , 05/01/2023, 04/01/2022, Additional history exists Fall Risk Assessment 11/18/2025 11/18/2024 DTaP/Tdap/Td Vaccine (2 - Td or Tdap) 04/05/2027 04/05/2017 Hepatitis B Screening Completed 01/30/2020 , 09/05/2019, 08/01/2019 Pneumococcal vaccine 65+ Completed 03/29/2024 Medical Devices Implanted Type Area [employer] Att[employer] Device Identifier Shelf Expiration Date Model / Serial / Lot Other - See Comments Other - see comments Left: Ankle Description:Screws and steel plate per patient [employer] Plate Bone Low Profile 4 Hole Box Sternum Ti 115.103.04 - [id number] Implanted:Qty: 1 on 11/13/2024 by Kolby Oliveira MD at [facility] Plate N/A: Sternum [employer] 115.103. 04 / / [employer] Plate Bone Low Profile 6 Hole O Shape Sternum Ti 115.104.06 - [id number] Implanted:Qty: 1 on 11/13/2024 by Kolby Oliveira MD at [facility] Plate N/A: Sternum [employer] 115.104. 06 / / [employer] Plate Bone Low Profile 6 Hole H Shape Sternum Ti 115.102.06 - [id number] Implanted:Qty: 1 on 11/13/2024 by Kolby Oliveira MD at [facility] Plate N/A: Sternum [employer] 115.102. 06 / / [employer]Marc[employer] ds Perimount Magna Ease 29mm Bioprosthesis [id number] - [id number] - [id number] Implanted:Qty: 1 on 11/13/2024 by Kolby Oliveira MD at [facility] Prosthetic Valve N/A: [employer] 01/24/2028 [id number] 9MM / [id number] / [employer] Screw Bone Slf Drl Full Thread Locking 3.5x18mm Ti 100.035.18 - [id number] Implanted:Qty: 16 on 11/13/2024 by Kolby Oliveira MD at [facility] Screw N/A: Sternum [employer] 100.035. 18 / / Insurance [id number] MEDICARE ADVANTAGE [facility] Address: [facility] [address] [place] [address] [facility] MEDICARE AD[facility] MEDIC[facility] Address: [facility] [address] [place] [address] Advance Directives For more information, please contact: [phone] * Full Code (Latest Code Status on File) Date Activated Date Inactivated Comments 11/13/2024 11:35 AM 11/18/2024 8:13 PM Care Teams Sales Training Representative Relationship Specialty Start Date End Date Elizabeth St MD [address] [facility] [address] [place] [address] PCP - General Internal Medicine 09/12/24
== END 2025-05-03 13:49 | disposition home or self-care (01) ==
PROVIDERS: PCP Internal Medicine Cardiovascular Disease; Visit Provider Internal Medicine
DX: Z12.2 Encounter for screening for malignant neoplasm of respiratory organs (principal); F17.210 Nicotine dependence, cigarettes, uncomplicated
CPT/HCPCS: 71271